=== PATIENT | male | born 1965 | race African-American/Black ===

== ENCOUNTER → 2016-07-22 | Outpatient (CLI) | payer BC ==
[~2016-07-22] VITALS: Ht 175.3 cm; Wt 80.8 kg
[~2016-07-22] MED LIST: AMBIEN 10 MG TA10 MG PO; ASPIR 8181 MG PO; LISINOPRIL10 MG PO; LOPRESSOR25 PO; LYRICA 75 MG CA75 MG PO; METHADONE HCL5 MG PO; MYFORTIC360 MG PO; PERCOCET 5-3251 EACH PO; PERCOCET 7.5-31 EAC1 PO; PERCOCET 7.5-31 EACH PO; PREDNISONE 5 MG5 M1 PO; PROGRAF0.5 MG PO; PROGRAF1 MG PO; TRILEPTAL 300300 MG PO; TRILEPTAL150 MG PO; UNICOMPLEX M TA1 TA1 PO; ZANTAC 150MG T150 MG PO
--- NOTE | ~2016-07-22 | HPC ---
[facility] [place] [address] PAIN MANAGEMENT CONSULTATION Name: FRANCISCO JENNINGS Room #: REG [facility] Carrie.#: [id number] Admission: 07/22/16 Attend Phys: Isidro Dominguez DO Discharge: Date of : 65 Report #: [id number] THIS REPORT FOR: //name// CC: Ekaterina Dominguez HISTORY OF PRESENT ILLNESS: The patient is a pleasant 51-year-old gentleman, well known to the pain clinic, being treated for bilateral neuropathic pain affecting his feet, the patient is status post pancreatic and renal transplant, he has diabetic peripheral neuropathy. Since the transplant, actually his renal function and glucose control has been quite good. He has been stable on Trileptal 300 mg b.i.d. and Percocet 7.5/325 four a day for chronic pain now for quite some time, last urine drug screen 01/22/2016, was positive for prescribed medications. He returns to pain clinic today noting medications are providing sufficient analgesia to participate in activities of daily living. Subjective pain score is 5/10, again chronic bilateral feet pain, burning, sharp, and aching in character. 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 PHYSICAL EXAMINATION: Unchanged from last visit, a 51-year-old male, BMI is 26.3 kg/m2. Vital signs show modest hypertension at 159/94, pulse 86, and respirations 16. Alert and oriented to person, place and time, judged to be a reasonable historian. Gait is tandem, but diffuse hyperalgesia on both feet, hyperpathia and allodynia. We reviewed the fact that opiate medications are being used to provide analgesia adequate to support activities of daily living, not attempting to achieve a specific pain score on the 0-10 Visual Analog Scale. The current opiate medications are providing sufficient analgesia to allow the patient to participate in activities of daily living. The patient is not exhibiting any aberrant behavior suggestive of drug diversion. The patient is not having any adverse reactions to medications. The patient is not suffering from daytime somnolence or mental acuity changes. The patient is managing opiate-induced constipation with appropriate btgy-czc-cgdfvvi agents and dietary considerations. The patient was counseled on concern for caution with operating a motor vehicle while using opiate medications. A physical exam was performed and the patient's functional status was evaluated. All patients with back pain were advised against the bed rest greater than 4 days and were advised to return to normal activities. Pain score assessment was noted and the treatment plan was reviewed with the patient. All current medications, both prescribed and OTC were reviewed and reconciled on the electronic medical record. Tobacco screening was accomplished and smoking cessation was advised when indicated. BMI was noted and diet/exercise modification was recommended for all patients following outside normal [facility] [address] [place] [address] PAIN MANAGEMENT CONSULTATION Name: FRANCISCO JENNINGS Room #: REG [place] Cabral#: [id number] Admission: 07/22/16 Attend Phys: Isidro Dominguez DO Discharge: Date of : 65 Report #: [id number] parameters. I reviewed with the patient today their responsibilities to safeguard prescription medications, reviewed their responsibility to utilize medications only as prescribed by the physician. They are to seek and receive pain medications only from 1 physician group ( [facility]). They are to use 1 pharmacy and keep the clinic informed if they change pharmacies. Their responsibilities include making followup visits in a timely fashion and to avoid abrupt discontinuation of medication usage. Their responsibilities further include bringing their medications (bottles from the pharmacy with residual pills) to the visit for possible confirmation of pill counts and the patient understands it is their responsibility to submit to random drug screens to ensure both that the medications prescribed are present, and that no other controlled substances are present. All prescriptions provided today were generated electronically. 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 RECOMMENDATION: Continue baseline medication unchanged, Trileptal 300 mg b.i.d., Percocet 7.5/325 up to 4 a day. I have taken the liberty of writing for 2 months of current medications. Follow up at that time, earlier if needed. <ELECTRONICALLY SIGNED> By: Isidro Dominguez DO 07/25/16 1538 1622 Isidro Dominguez DO /nt
[2016-07-22 14:00] VITALS: BP 159/94
== END ==
LOC: PAIN 06:47
DX: E11.42 Type 2 diabetes mellitus with diabetic polyneuropathy (principal); Z94.0 Kidney transplant status; Z94.83 Pancreas transplant status; I10 Essential (primary) hypertension

== ENCOUNTER → 2016-09-09 | Outpatient (CLI) | payer BC ==
[~2016-09-09] VITALS: Ht 175.3 cm; Wt 78.0 kg
--- NOTE | ~2016-09-09 | HPC ---
[facility] [address] [address] PAIN MANAGEMENT CONSULTATION Name: FRANCISCO JENNINGS Room #: REG [facility] Carrie.#: [id number] Admission: 09/09/16 Attend Phys: Isidro Dominguez DO Discharge: Date of : 65 Report #: [id number] THIS REPORT FOR: //name// CC: Ekaterina Dominguez HISTORY OF PRESENT ILLNESS: The patient is a very pleasant 51-year-old gentleman well known to the pain clinic, being treated for bipedal neuropathy, neuropathic pain requiring complex medication management. He is status post pancreatic renal transplant about 11 years ago. Has a combination of diabetic peripheral neuropathy, plantar fasciitis and osteoarthritis in the ankles, requiring complex medication management. The patient has been stable on Percocet 7.5/325 up to 4 a day and Trileptal 300 mg b.i.d. He has a very realistic expectation on medications "blunt", the burning, sharp, aching pain in his feet, which he notes does have 4/10 on a 0-10 visual analog scale. Last urine drug screen 01/22/2016 was positive for prescribed medication. We reviewed the fact that opiate medications are being used to provide analgesia adequate to support activities of daily living, not attempting to achieve a specific pain score on the 0-10 Visual Analog Scale. The current opiate medications are providing sufficient analgesia to allow the patient to participate in activities of daily living. The patient is not exhibiting any aberrant behavior suggestive of drug diversion. The patient is not having any adverse reactions to medications. The patient is not suffering from daytime somnolence or mental acuity changes. The patient is managing opiate-induced constipation with appropriate trnv-nxn-wpmvfrk agents and dietary considerations. The patient was counseled on concern for caution with operating a motor vehicle while using opiate medications. A physical exam was performed and the patient's functional status was evaluated. All patients with back pain were advised against the bed rest greater than 4 days and were advised to return to normal activities. Pain score assessment was noted and the treatment plan was reviewed with the patient. All current medications, both prescribed and OTC were reviewed and reconciled on the electronic medical record. Tobacco screening was accomplished and smoking cessation was advised when indicated. BMI was noted and diet/exercise modification was recommended for all patients following outside normal parameters. I reviewed with the patient today their responsibilities to safeguard prescription medications, reviewed their responsibility to utilize medications only as prescribed by the physician. They are to seek and receive pain medications only from 1 physician group ( [facility]). They are to use 1 pharmacy and keep the clinic informed if they change pharmacies. Their [address] [address] PAIN MANAGEMENT CONSULTATION Name: FRANCISCO JENNINGS Room #: REG [place] Cabral#: [id number] Admission: 09/09/16 Attend Phys: Isidro Dominguez DO Discharge: Date of : 65 Report #: [id number] responsibilities include making followup visits in a timely fashion and to avoid abrupt discontinuation of medication usage. Their responsibilities further include bringing their medications (bottles from the pharmacy with residual pills) to the visit for possible confirmation of pill counts and the patient understands it is their responsibility to submit to random drug screens to ensure both that the medications prescribed are present, and that no other controlled substances are present. All prescriptions provided today were generated electronically. PHYSICAL EXAMINATION: GENERAL: Unchanged from last visit, 51-year-old gentleman, BMI is 25.4 kilograms per meter squared. VITAL SIGNS: Stable. NEUROLOGIC: Alert and oriented to person, place and time, judged to be a reasonable historian. Subjective pain in his feet with nominally antalgic gait. ASSESSMENT: Bipedal neuropathy, neuropathic pain requiring complex medication management in a gentleman status post pancreatic and renal transplant with diabetic peripheral neuropathy, plantar fasciitis and osteoarthritis affecting his ankles. RECOMMENDATIONS: Continue current medication unchanged, Percocet 7.5/325 four a day, Trileptal 300 mg b.i.d. Follow up in 2 months for reevaluation. <ELECTRONICALLY SIGNED> By: Isidro Dominguez DO 09/12/16 0657 [id number] 1303 Isidro Dominguez DO /nt
[2016-09-09 10:19] VITALS: BP 131/81
== END | disposition home or self-care (01) ==
LOC: PAIN 06:49
DX: G62.9 Polyneuropathy, unspecified (principal); E11.42 Type 2 diabetes mellitus with diabetic polyneuropathy; M72.2 Plantar fascial fibromatosis; M19.072 Primary osteoarthritis, left ankle and foot; M19.071 Primary osteoarthritis, right ankle and foot; F11.20 Opioid dependence, uncomplicated; G89.29 Other chronic pain; Z79.82 Long term (current) use of aspirin; Z94.83 Pancreas transplant status; Z79.4 Long term (current) use of insulin; Z94.0 Kidney transplant status; Z98.890 Other specified postprocedural states

== ENCOUNTER → 2016-11-14 | Outpatient (CLI) | payer BC ==
[~2016-11-14] VITALS: Ht 175.3 cm; Wt 81.1 kg
--- NOTE | ~2016-11-14 | HPC ---
[facility] [address] [place] [address] PAIN MANAGEMENT CONSULTATION Name: FRANCISCO JENNINGS Room #: REG [place]na#: [id number] Admission: 11/14/16 Attend Phys: Isidro Dominguez DO Discharge: Date of : 65 Report #: [id number] THIS REPORT FOR: //name// CC: Ekaterina Dominguez The patient is a delightful 51-year-old gentleman suffers bipedal neuropathy, some plantar fasciitis, chronic pain requiring complex medication management. He is status post pancreatic renal transplant, now 11 years ago. He has been stable on Percocet 7.5/325 four a day and Trileptal 300 mg b.i.d. for his bilateral neuropathic pain. 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 Spends a great deal of time on his feet. He notes medications provide sufficient analgesia to blunt his pain. He has realistic expectation about pain control. Last urine drug screen 01/22/2016 was positive for prescribed medications. We will likely check again next visit, no aberrant behavior suggestive for drug diversion, simply complying with opiate consent to treat contract. Today, he notes his pain is 4 on a VAS, chronic bilateral foot pain, he describes as burning, aching and sharp. Reviewed medications, list was reconciled. He does take lisinopril for hypertension. Looking back at his chart, it appears his blood pressure had been under much better control in the past. I suggest he follow up with his training generalist physician. PHYSICAL EXAMINATION: VITAL SIGNS: Unchanged, 51-year-old gentleman, BMI is 26.4 kilograms per meter squared. Blood pressure is elevated at 164/98, pulse 94, respirations 20. EXTREMITIES: Rises from chair using armrest. Gait is tandem. NEUROLOGIC: Alert and oriented to person, place and time, judged to be a reasonable historian. K-TRACS reveals no findings, he gets his prescriptions filled . ASSESSMENT: Neuropathic pain requiring complex medication management. The patient is stable on baseline medications. We reviewed the fact that opiate medications are being used to provide analgesia adequate to support activities of daily living, not attempting to achieve a specific pain score on the 0-10 Visual Analog Scale. The current opiate medications are providing sufficient analgesia to allow the patient to participate in activities of daily living. The patient is not exhibiting any aberrant behavior suggestive of drug diversion. The patient is not having any adverse reactions to medications. The patient is not suffering from daytime somnolence or mental acuity changes. The patient is managing opiate-induced constipation with appropriate rvao-ufx-wfvkxyh [place] [address] PAIN MANAGEMENT CONSULTATION Name: FRANCISCO JENNINGS Room #: REG [facility] Marianna#: [id number] Admission: 11/14/16 Attend Phys: Isidro Dominguez DO Discharge: Date of : 65 Report #: [id number] considerations. The patient was counseled on concern for caution with operating a motor vehicle while using opiate medications. A physical exam was performed and the patient's functional status was evaluated. All patients with back pain were advised against the bed rest greater than 4 days and were advised to return to normal activities. Pain score assessment was noted and the treatment plan was reviewed with the patient. All current medications, both prescribed and OTC were reviewed and reconciled on the electronic medical record. Tobacco screening was accomplished and smoking cessation was advised when indicated. BMI was noted and diet/exercise modification was recommended for all patients following outside normal parameters. I reviewed with the patient today their responsibilities to safeguard prescription medications, reviewed their responsibility to utilize medications only as prescribed by the physician. They are to seek and receive pain medications only from 1 physician group ( [facility]). They are to use 1 pharmacy and keep the clinic informed if they change pharmacies. Their responsibilities include making followup visits in a timely fashion and to avoid abrupt discontinuation of medication usage. Their responsibilities further include bringing their medications (bottles from the pharmacy with residual pills) to the visit for possible confirmation of pill counts and the patient understands it is their responsibility to submit to random drug screens to ensure both that the medications prescribed are present, and that no other controlled substances are present. All prescriptions provided today were generated electronically. RECOMMENDATION: Continue medication unchanged, Percocet 7.5/325 four a day, Trileptal 300 mg b.i.d. Follow up in 2 months for reevaluation. By: [id number] Isidro Dominguez DO /nt
[2016-11-14 14:13] VITALS: BP 164/98
== END ==
LOC: PAIN 07:25
DX: M79.2 Neuralgia and neuritis, unspecified (principal)

== ENCOUNTER → 2017-01-02 | Outpatient (CLI) | payer BC ==
[~2017-01-02] VITALS: Ht 175.3 cm; Wt 82.6 kg
[~2017-01-02] MED LIST changes: +NUCYNTA75 MG PO
--- NOTE | ~2017-01-02 | HPC ---
[facility] [address] [address] PAIN MANAGEMENT CONSULTATION Name: FRANCISCO JENNINGS Room #: REG [facility] Carrie.#: [id number] Admission: 01/02/17 Attend Phys: Isidro Dominguez DO Discharge: Date of : 65 Report #: [id number] THIS REPORT FOR: //name// CC: Ekaterina Dominguez The patient is a very pleasant 51-year-old gentleman, long treated for neuropathic pain bipedal, history of plantar fasciitis, status post pancreatic renal transplant, stable on neuropathic medication including Trileptal 300 mg b.i.d. and Percocet 7.5/325 up to 4 a day. The patient has been having some dwindling efficacy with Percocet. 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 PHYSICAL EXAMINATION: Shows a pleasant 51-year-old gentleman, BMI is 26.9 kg/m2. Blood pressure is modestly elevated 143/94, pulse is 101, and respirations 16. Subjective pain score is a 7-8 on VAS, burning and aching sensation, bilateral feet. Otherwise, physical exam is unchanged from last visit. We reviewed the fact that opiate medications are being used to provide analgesia adequate to support activities of daily living, not attempting to achieve a specific pain score on the 0-10 Visual Analog Scale. The current opiate medications are providing sufficient analgesia to allow the patient to participate in activities of daily living. The patient is not exhibiting any aberrant behavior suggestive of drug diversion. The patient is not having any adverse reactions to medications. The patient is not suffering from daytime somnolence or mental acuity changes. The patient is managing opiate-induced constipation with appropriate wbln-kdk-haiqxtw agents and dietary considerations. The patient was counseled on concern for caution with operating a motor vehicle while using opiate medications. A physical exam was performed and the patient's functional status was evaluated. All patients with back pain were advised against the bed rest greater than 4 days and were advised to return to normal activities. Pain score assessment was noted and the treatment plan was reviewed with the patient. All current medications, both prescribed and OTC were reviewed and reconciled on the electronic medical record. Tobacco screening was accomplished and smoking cessation was advised when indicated. BMI was noted and diet/exercise modification was recommended for all patients following outside normal parameters. I reviewed with the patient today their responsibilities to safeguard prescription medications, reviewed their responsibility to utilize medications only as prescribed by the physician. They are to seek and receive pain medications only from 1 physician group ( [facility]). They are to use 1 pharmacy and keep the clinic informed if they change pharmacies. Their [address] [address] PAIN MANAGEMENT CONSULTATION Name: FRANCISCO JENNINGS Room #: REG [place] Cabral#: [id number] Admission: 01/02/17 Attend Phys: Isidro Dominguez DO Discharge: Date of : 65 Report #: [id number] responsibilities include making followup visits in a timely fashion and to avoid abrupt discontinuation of medication usage. Their responsibilities further include bringing their medications (bottles from the pharmacy with residual pills) to the visit for possible confirmation of pill counts and the patient understands it is their responsibility to submit to random drug screens to ensure both that the medications prescribed are present, and that no other controlled substances are present. All prescriptions provided today were generated electronically. RECOMMENDATION: Discussion with the patient today about therapeutic option. We talked about opiate rotation today. Again, he has been having a little lack of efficacy. 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 Today, we have elected to trial rotating from Percocet 7.5/325 to Nucynta 75 mg, switching with directions similarly 4 times a day for breakthrough pain. We will continue Trileptal 300 mg b.i.d. I am hopeful this rotation will work, I wrote for 2 months of current medication, did suggest that in about 3 weeks if the rotation is not efficacious for him to return to the pain clinic, we will either consider another rotation or go back to Percocet. Discharged in good and stable condition after moderately prolonged visit spent counseling the patient, reviewing therapeutic options, discussing medication changes. Overall, approximately 25 minutes was spent with the patient, discharged in good and stable condition. <ELECTRONICALLY SIGNED> By: Isidro Dominguez DO 01/04/17 0752 [id number] 1420 Isidro Dominguez DO /nt
[2017-01-02 09:19] VITALS: BP 143/94
== END | disposition home or self-care (01) ==
LOC: PAIN 07:09
DX: G62.9 Polyneuropathy, unspecified (principal); M72.2 Plantar fascial fibromatosis; Z94.83 Pancreas transplant status; Z94.0 Kidney transplant status

== ENCOUNTER → 2017-03-03 | Outpatient (CLI) | payer BC ==
[~2017-03-03] VITALS: Ht 175.3 cm; Wt 84.0 kg
[~2017-03-03] MED LIST changes: +OXYCODONE HCL E10 MG PO
--- NOTE | ~2017-03-03 | HPC ---
[facility] [place] [address] PAIN MANAGEMENT CONSULTATION Name: FRANCISCO JENNINGS Room #: REG [place] Carrie.#: [id number] Admission: 03/03/17 Attend Phys: Isidro Dominguez DO Discharge: Date of : 65 Report #: [id number] THIS REPORT FOR: //name// CC: Ekaterina Dominguez HISTORY OF PRESENT ILLNESS: The patient is a delightful 51-year-old gentleman long treated for chronic neuropathic pain, bipedal. He has history of plantar fasciitis. Comorbidity includes being status post pancreas and renal transplant. He has diabetes with diabetic peripheral neuropathy. 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 At last visit, we had tried rotating from Percocet 7.5/325 due to dwindling efficacy to Nucynta 75 mg. This unfortunately caused exacerbation of pain and some nausea. We reverted back to Percocet 5/325. Continued Trileptal 300 mg b.i.d. He returns to pain clinic today noting pain remains problematic. He rates it at 7 on a VAS, right greater than left foot; burning, aching sensation; exacerbated with standing and walking. PHYSICAL EXAMINATION: Unchanged. Pleasant 51-year-old gentleman, BMI is 27.3 kilograms per meter squared. Blood pressure modestly elevated at 149/78, pulse 112, respiration 16. Rises from chair using armrest, antalgic gait, burning dysesthesia in his feet and lower legs. We reviewed the fact that opiate medications are being used to provide analgesia adequate to support activities of daily living, not attempting to achieve a specific pain score on the 0-10 Visual Analog Scale. The current opiate medications are providing sufficient analgesia to allow the patient to participate in activities of daily living. The patient is not exhibiting any aberrant behavior suggestive of drug diversion. The patient is not having any adverse reactions to medications. The patient is not suffering from daytime somnolence or mental acuity changes. The patient is managing opiate-induced constipation with appropriate zkak-zjx-ilsfvzp agents and dietary considerations. The patient was counseled on concern for caution with operating a motor vehicle while using opiate medications. A physical exam was performed and the patient's functional status was evaluated. All patients with back pain were advised against the bed rest greater than 4 days and were advised to return to normal activities. Pain score assessment was noted and the treatment plan was reviewed with the patient. All current medications, both prescribed and OTC were reviewed and reconciled on the electronic medical record. Tobacco screening was accomplished and smoking cessation was advised when indicated. BMI was noted and diet/[place] [address] PAIN MANAGEMENT CONSULTATION Name: FRANCISCO JENNINGS Room #: REG [place] Cabral#: [id number] Admission: 03/03/17 Attend Phys: Isidro Dominguez DO Discharge: Date of : 65 Report #: [id number] modification was recommended for all patients following outside normal parameters. I reviewed with the patient today their responsibilities to safeguard prescription medications, reviewed their responsibility to utilize medications only as prescribed by the physician. They are to seek and receive pain medications only from 1 physician group ( [facility]). They are to use 1 pharmacy and keep the clinic informed if they change pharmacies. Their responsibilities include making followup visits in a timely fashion and to avoid abrupt discontinuation of medication usage. Their responsibilities further include bringing their medications (bottles from the pharmacy with residual pills) to the visit for possible confirmation of pill counts and the patient understands it is their responsibility to submit to random drug screens to ensure both that the medications prescribed are present, and that no other controlled substances are present. All prescriptions provided today were generated electronically. Long discussion with the patient today. In fact, he was seen for a prolonged visit, from 9:22-9:50, greater than 50% of time spent counseling the patient. We elected to: 1. Get a buccal drug swab. It should be positive for oxycodone as the sole opiate. No aberrant behavior suggestive for drug diversion, simply complying with her opiate consent to treat contract. 2. We will continue Percocet 7.5/325 up to 4 a day, but add low dose methadone 2.5 mg q. 8 hours p.r.n. for pain. I have taken the liberty of writing for 2 months of current medication. If after about 3 weeks, his methadone experiment is not efficacious and does not lower his overall baseline pain, I have taken the liberty of writing for oxycodone extended release 10 mg tablet, 60 tablets, to take one b.i.d. We will leave that prescription on the chart. He can bring back the "4-week release of methadone and trial the long acting oxycodone along with Percocet 7.5/325 four a day. The patient was discharged in good and stable condition. Follow up in 4 weeks for evaluation. Again he was seen for a prolonged visit, from 9:22-9:50. Discharged in stable condition. <ELECTRONICALLY SIGNED> By: Isidro Dominguez DO 03/06/17 0759 [id number] Isidro Dominguez, DO /nt
[2017-03-03 09:20] VITALS: BP 149/78
== END ==
LOC: PAIN 06:41
DX: E11.40 Type 2 diabetes mellitus with diabetic neuropathy, unspecified (principal); M72.2 Plantar fascial fibromatosis; Z94.83 Pancreas transplant status; Z94.0 Kidney transplant status

== ENCOUNTER → 2017-04-24 | Outpatient (CLI) | payer BC ==
[~2017-04-24] VITALS: Ht 175.3 cm; Wt 82.4 kg
[~2017-04-24] MED LIST changes: +PERCOCET 10-321 EACH PO; +TRILEPTAL300 MG PO
--- NOTE | ~2017-04-24 | HPC ---
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 He is status post pancreas and renal transplant. He has been stable on Trileptal 300 mg b.i.d. He had been utilizing Percocet 7.5/325 four a day for many years, was having dwindling efficacy. Last visit, we trialed adding a low dose methadone 2.5 mg t.i.d. This caused significant GI distress. His trial of adding OxyContin 10 mg b.i.d. with really no discernible change in pain. Buccal swab at last visit was positive for prescribed medications. He returns to pain clinic today noting pain continues to be problematic. 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 He remains quite functional and active despite ongoing chronic pain. PHYSICAL EXAMINATION: GENERAL: Today is generally unchanged, 52-year-old gentleman, BMI is approximately 26 kilograms per meter squared. NEUROLOGIC: Alert and oriented to person, place and time, judged to be a reasonable historian. MUSCULOSKELETAL: Cervical range of motion is good. Rises from chair using armrest. Modestly antalgic gait, tandem with peripheral neuropathic pain from about the knees down bilaterally. We reviewed the fact that opiate medications are being used to provide analgesia adequate to support activities of daily living, not attempting to achieve a specific pain score on the 0-10 Visual Analog Scale. The current opiate medications are providing sufficient analgesia to allow the patient to participate in activities of daily living. The patient is not exhibiting any aberrant behavior suggestive of drug diversion. The patient is not having any adverse reactions to medications. The patient is not suffering from daytime somnolence or mental acuity changes. The patient is managing opiate-induced constipation with appropriate ybvd-mhl-txolexu agents and dietary considerations. The patient was counseled on concern for caution with operating a motor vehicle while using opiate medications. A physical exam was performed and the patient's functional status was evaluated. [address] [address] PAIN MANAGEMENT CONSULTATION Name: FRANCISCO JENNINGS Room #: REG CLI Dori#: [id number] Admission: 04/24/17 Attend Phys: Isidro Dominguez DO Discharge: Date of : 65 Report #: [id number] All patients with back pain were advised against the bed rest greater than 4 days and were advised to return to normal activities. Pain score assessment was noted and the treatment plan was reviewed with the patient. All current medications, both prescribed and OTC were reviewed and reconciled on the electronic medical record. Tobacco screening was accomplished and smoking cessation was advised when indicated. BMI was noted and diet/exercise modification was recommended for all patients following outside normal parameters. I reviewed with the patient today their responsibilities to safeguard prescription medications, reviewed their responsibility to utilize medications only as prescribed by the physician. They are to seek and receive pain medications only from 1 physician group ( [facility]). They are to use 1 pharmacy and keep the clinic informed if they change pharmacies. Their responsibilities include making followup visits in a timely fashion and to avoid abrupt discontinuation of medication usage. Their responsibilities further include bringing their medications (bottles from the pharmacy with residual pills) to the visit for possible confirmation of pill counts and the patient understands it is their responsibility to submit to random drug screens to ensure both that the medications prescribed are present, and that no other controlled substances are present. All prescriptions provided today were generated electronically. ASSESSMENT: Chronic neuropathic pain, bilateral lower extremities, requiring high risk complex medication management in a gentleman status post pancreatic and renal transplant. RECOMMENDATIONS: After a long discussion with the patient today, we have elected to discontinue OxyContin. Obviously, we have already discontinued methadone. Continue Trileptal 300 mg b.i.d., he does not require prescription for this medication today. I have elected to simply increase Percocet from 7.5/325 to 10/325. Continue enabling up to 4 tablets a day, 120 tablets for 30 days, I did take the liberty of writing for 2 months of current medication. Suggested on weekends and days when he is not working 40+ hours, he try and take less, i.e., 3 Percocet as able. Discharged in good and stable condition today. Follow up in 2 months for reevaluation. <ELECTRONICALLY SIGNED> By: Isidro Dominguez DO 04/26/17 0807 [id number] Isidro Dominguez DO /nt
[2017-04-24 11:12] VITALS: BP 161/84
== END ==
LOC: PAIN 06:47
DX: M79.2 Neuralgia and neuritis, unspecified (principal); M79.605 Pain in left leg; M79.604 Pain in right leg; Z79.899 Other long term (current) drug therapy; Z94.83 Pancreas transplant status; Z94.0 Kidney transplant status

== ENCOUNTER → 2017-06-15 | Outpatient (CLI) | payer BC ==
[~2017-06-15] VITALS: Ht 175.3 cm; Wt 83.3 kg
--- NOTE | ~2017-06-15 | HPC ---
[facility] [address] [address] [place] [address] PAIN MANAGEMENT CONSULTATION Name: FRANCISCO JENNINGS Room #: REG GRETCHENGarry Butler.#: [id number] Admission: 06/15/17 Attend Phys: Isidro Dominguez DO Discharge: Date of : 65 Report #: [id number] THIS REPORT FOR: //name// CC: Ekaterina Dominguez HISTORY OF PRESENT ILLNESS: The patient is a very pleasant 52-year-old gentleman long treated for bipedal neuropathy. He has a longstanding diabetes, status post pancreas and renal transplant. His blood sugars have been better following the transplant. He has had bipedal neuropathy that has been stable with Percocet 10/325 up to 4 a day, this is slightly increase from 7.5/325 prior dosing. I trialed rotating to OxyContin with a low-dose Percocet and we tried rotating the methadone, all with no significant efficacy. He does use Trileptal 300 mg b.i.d. He returns to pain clinic today, we had a prolonged visit from 10:00 a.m. to 10:30, greater than 50% of this 25+ minute visit was spent counseling the patient. We reviewed his prior buccal drug swab, random drug testing 03/03/2017 which was positive for prescribed medications and no others. The patient notes that while medications have been helpful for his chronic neuropathic pain, he developed specific point tenderness in the right lateral aspect of his foot. We reviewed the fact that opiate medications are being used to provide analgesia adequate to support activities of daily living, not attempting to achieve a specific pain score on the 0-10 Visual Analog Scale. The current opiate medications are providing sufficient analgesia to allow the patient to participate in activities of daily living. The patient is not exhibiting any aberrant behavior suggestive of drug diversion. The patient is not having any adverse reactions to medications. The patient is not suffering from daytime somnolence or mental acuity changes. The patient is managing opiate-induced constipation with appropriate jldv-chf-aswiqwo agents and dietary considerations. The patient was counseled on concern for caution with operating a motor vehicle while using opiate medications. A physical exam was performed and the patient's functional status was evaluated. All patients with back pain were advised against the bed rest greater than 4 days and were advised to return to normal activities. Pain score assessment was noted and the treatment plan was reviewed with the patient. All current medications, both prescribed and OTC were reviewed and reconciled on the electronic medical record. Tobacco screening was accomplished and smoking cessation was advised when indicated. BMI was noted and diet/exercise modification was recommended for all patients following outside normal [address] [address] PAIN MANAGEMENT CONSULTATION Name: FRANCISCO JENNINGS Room #: REG [place] Cabral#: [id number] Admission: 06/15/17 Attend Phys: Isidro Dominguez DO Discharge: Date of : 65 Report #: [id number] parameters. I reviewed with the patient today their responsibilities to safeguard prescription medications, reviewed their responsibility to utilize medications only as prescribed by the physician. They are to seek and receive pain medications only from 1 physician group ([facility]). They are to use 1 pharmacy and keep the clinic informed if they change pharmacies. Their responsibilities include making followup visits in a timely fashion and to avoid abrupt discontinuation of medication usage. Their responsibilities further include bringing their medications (bottles from the pharmacy with residual pills) to the visit for possible confirmation of pill counts and the patient understands it is their responsibility to submit to random drug screens to ensure both that the medications prescribed are present, and that no other controlled substances are present. All prescriptions provided today were generated electronically. PHYSICAL EXAMINATION: Does show hypertrophic area here that is quite tender. Difficult to tell if this is a "corn" or perhaps a small infectious site secondary to a prior unnoticed trauma (splinter?). Physical exam otherwise unchanged, a 52-year-old gentleman, BMI is 27.1 kilograms per meter squared. Blood pressure is 161/84, pulse 103, respirations 16. Subjective pain score 8 on a VAS which is elevated for the patient. He has not fallen in the last 3 months. He is hypertensive. Medication list was reconciled. His opiate consent to treat contract was signed on 12/04/2015. His risk assessment tool scores in the low risk for opiate diversion. Again, changes in the right lateral mid foot are quite concerning. I did contact Dr. Jacinta Menezes, roofing tile sorter, his office is immediately above our clinic. Dr. Menezes was kind enough to make an appointment to see the patient this morning. He was discharged from our clinic in good and stable condition. I did renew his Percocet 10/325 up to 4 a day and Trileptal 300 mg b.i.d. for another 3 months. Follow up at that time, earlier if needed. <ELECTRONICALLY SIGNED> By: Isidro Dominguez DO 06/21/17 0744 [id number] Isidro Dominguez DO /nt
[2017-06-15 10:00] VITALS: BP 144/88
== END ==
LOC: PAIN 06:58
DX: G62.9 Polyneuropathy, unspecified (principal); F11.90 Opioid use, unspecified, uncomplicated; M79.672 Pain in left foot

== ENCOUNTER → 2017-08-14 | Outpatient (CLI) | payer BC ==
[~2017-08-14] VITALS: Ht 175.3 cm; Wt 85.7 kg
[~2017-08-14] MED LIST changes: -TRILEPTAL300 MG PO
--- NOTE | ~2017-08-14 | HPC ---
[facility] [place] [address] [place] [address] PAIN MANAGEMENT CONSULTATION Name: FRANCISCO JENNINGS Room #: REG GRETCHENGarry Cabral#: [id number] Admission: 08/14/17 Attend Phys: Isidro Dominguez DO Discharge: Date of : 65 Report #: [id number] THIS REPORT FOR: //name// CC: Ekaterina Dominguez DATE OF SERVICE: 08/14/2017 The patient is a delightful 52-year-old gentleman long treated for symptomatic neuropathic pain affecting bilateral feet. He has diabetic peripheral neuropathy, had pancreas and kidney transplant quite some time ago. Blood sugars have been stable. He does have peripheral neuropathic pain, which has been well treated with oxycodone and Trileptal 300 mg b.i.d. We had trialed methadone and OxyContin with low dose oxycodone. Ultimately, he failed these other agents. He had been stable on Percocet 7.5/325 four a day for quite some time, I did increase his dose to 10/325 in April of this year. Last random drug screen on 03/03/2017 was positive for prescribed medications. He returns to pain clinic today. Last visit, he was having some different point tenderness pain in his feet. I have referred him to Dr. Jacinta Menezes who was kind enough to see him in office that day. Apparently, he had some clogged sweat glands in his feet that were developing some acute nodules. These were shaved and treated with topical medication. Two office visits have significantly ameliorated the point tenderness in his feet. He is very pleased. He notes current pain score is 5 on a VAS. Notes he is able to participate in activities of daily living. 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 This requires a great deal of standing, walking on a concrete floor. He just got through Mother's Day. He notes that throughout the rest of the summer, they do a lot of weddings. Otherwise, he notes he is able to participate in all activities of daily living. Rates his functional assessment quite low at 17/70. He has not fallen in the last 3 months. PHYSICAL EXAMINATION: GENERAL: Otherwise unchanged. Very pleasant 5 feet 9 inches, 189 pound gentleman, BMI is 27.9 kilograms per meter squared. VITAL SIGNS: Blood pressure 127/82, pulse is 108, respirations 16, room air oxygen saturation 100%. He is doing well with current medications. Discussed with the patient that I will be leaving the practice. He has been quite dependable responsible and medications have afforded great utility for him. I pointed out that he is in the relative moderate risk at roughly 60 mg of morphine a day. Again, he had been stable at 7.5/325 Percocet 4 a day for quite some time that was equivalent to about 45 mg of morphine. Only recently we did [address] [address] PAIN MANAGEMENT CONSULTATION Name: FRANCISCO JENNINGS Room #: REG [facility] Carrie.#: [id number] Admission: 08/14/17 Attend Phys: Isidro Dominguez DO Discharge: Date of : 65 Report #: [id number] increase the dose. I told him we will probably leave at this dose for quite some time. If he starts to fail at this dose, we would look at rotating to a different agent and probably trying an opiate wean. Presently; however, I have taken the liberty of writing for 3 months of current medication including Percocet 10/325 four a day and Trileptal 300 mg b.i.d. I will have the patient follow up with Dr. Donald Prado or Dr. Gabe Dominguez in 3 months. We reviewed the fact that opiate medications are being used to provide analgesia adequate to support activities of daily living, not attempting to achieve a specific pain score on the 0-10 Visual Analog Scale. The current opiate medications are providing sufficient analgesia to allow the patient to participate in activities of daily living. The patient is not exhibiting any aberrant behavior suggestive of drug diversion. The patient is not having any adverse reactions to medications. The patient is not suffering from daytime somnolence or mental acuity changes. The patient is managing opiate-induced constipation with appropriate rcbz-ocg-vwqlgxn agents and dietary considerations. The patient was counseled on concern for caution with operating a motor vehicle while using opiate medications. A physical exam was performed and the patient's functional status was evaluated. All patients with back pain were advised against the bed rest greater than 4 days and were advised to return to normal activities. Pain score assessment was noted and the treatment plan was reviewed with the patient. All current medications, both prescribed and OTC were reviewed and reconciled on the electronic medical record. Tobacco screening was accomplished and smoking cessation was advised when indicated. BMI was noted and diet/exercise modification was recommended for all patients following outside normal parameters. I reviewed with the patient today their responsibilities to safeguard prescription medications, reviewed their responsibility to utilize medications only as prescribed by the physician. They are to seek and receive pain medications only from 1 physician group ( [facility]). They are to use 1 pharmacy and keep the clinic informed if they change pharmacies. Their responsibilities include making followup visits in a timely fashion and to avoid abrupt discontinuation of medication usage. Their responsibilities further include bringing their medications (bottles from the pharmacy with residual pills) to the visit for possible confirmation of pill counts and the patient understands it is their responsibility to submit to random drug screens to ensure both that the medications prescribed are present, and that no other [facility] [address] [place] [address] PAIN MANAGEMENT CONSULTATION Name: DICKFRANCISCOToni GONSALEZ Room #: REG CL Carrie.#: [id number] Admission: 08/14/17 Attend Phys: Isidro Dominguez DO Discharge: Date of : 65 Report #: [id number] controlled substances are present. All prescriptions provided today were generated electronically. By: [id number] Isidro Dominguez DO /nt
[2017-08-14 14:20] VITALS: BP 127/82
== END ==
LOC: PAIN 07:27
DX: E11.42 Type 2 diabetes mellitus with diabetic polyneuropathy (principal); M79.2 Neuralgia and neuritis, unspecified

== ENCOUNTER → 2018-01-31 | Outpatient (CLI) | payer BC ==
[~2018-01-31] VITALS: Ht 175.3 cm; Wt 87.5 kg
[~2018-01-31] MED LIST changes: +TRILEPTAL300 MG PO
--- NOTE | ~2018-01-31 | HPC ---
[facility] [place] [address] PAIN MANAGEMENT CONSULTATION Name: FRANCISCO JENNINGS Room #: REG [place] Carrie.#: [id number] Admission: 01/31/18 Attend Phys: Isabela Ferguson Discharge: Date of : 65 Report #: [id number] THIS REPORT FOR: //name// CC: Ekaterina Ferguson DATE OF SERVICE: 01/31/2018 CHIEF COMPLAINT: Bilateral foot pain. HISTORY OF PRESENT ILLNESS: A very pleasant gentleman 52-year-old age, here for history of bipedal neuropathy. He has a longstanding history of diabetes and he has had a pancreas and kidney transplant. He notices that his foot pain has helped with his Percocet and his Trileptal. He would like a refill of his current medications today. He states that he is doing well with his current regimen. He denies any constipation or daytime sleepiness. He tells me that his pain score is 7/10 today, worse with walking and the medications are very helpful. The patient is slightly stressed today. His sister was taken to the hospital very emergently and anxious to get to her. He says that she has been sick lately. The patient is off work today for our visit today. ALLERGIES: No drug allergies. CURRENT MEDICATION LIST: Trileptal 300 mg twice a day, Percocet 10/325 up to 4 times a day, lisinopril, multivitamin, aspirin, Ambien, Zantac, prednisone, Myfortic and Prograf. PQRS: 1. The patient has bilateral history of osteoarthritis in his lower extremities. He denies rheumatoid arthritis. 2. Height 5 feet 9 inches, weight 193, BMI is 28.5. 3. Vital signs are blood pressure 140/87, pulse is 108, respirations 18, oxygen sat is 99. 4. Pain score is 7/10 today. 5. Fall risk. He denies dizziness. Does not need help walking or standing. 6. He has not fallen in the last 3 months. 7. The patient is on no blood thinners. 8. Does have a history of high blood pressure. 9. Opioid therapy greater than 6 weeks. Therefore, an opioid signed contract is on the chart. 10. Risk assessment tool is low and his functional assessment is . 11. The patient denies recreational drug use, does not smoke and does not drink alcohol. His [place] and [place] PDMP was checked. Appropriate fills only from our [facility] [address] [place] [address] PAIN MANAGEMENT CONSULTATION Name: FRANCISCO JENNINGS Room #: REG [facility] Marianna#: [id number] Admission: 01/31/18 Attend Phys: Isabela Ferguson Discharge: Date of : 65 Report #: [id number] Daniel Prado and in the past, Dr. Isidro Dominguez. The patient does have some other scheduled medications that are appropriate fills from his other doctors that we have record of. The patient has no aberrant behaviors and keeps them medicines locked up and only takes medicines that he needed to work and has a recent drug screen on the chart that is appropriate. PHYSICAL EXAMINATION GENERAL: The patient is a well-developed black male who appears his stated age. He is alert and oriented. Speech is fluent. HEENT: Normocephalic, atraumatic. Extraocular eye muscles are intact. Mucous membranes are moist. Hearing was within normal limits. LUNGS: Without significant scoliosis or lordosis. ABDOMEN: Nontender. EXTREMITIES: Upper extremities strength is judged to be 5/5 for his major muscle groups in his upper extremities. The patient notes some neuropathic changes in his lower extremities, especially his feet. Lower extremity strength is judged to be 5/5. The patient able to rise from sitting to standing without difficulty. IMPRESSION: 1. Diabetes with diabetic neuropathy, pancreatic and renal transplant. 2. Hypertension. 3. Neuropathic pain. We reviewed the fact that opiate medications are being used to provide analgesia adequate to support activities of daily living, not attempting to achieve a specific pain score on the 0-10 Visual Analog Scale. The current opiate medications are providing sufficient analgesia to allow the patient to participate in activities of daily living. The patient is not exhibiting any aberrant behavior suggestive of drug diversion. The patient is not having any adverse reactions to medications. The patient is not suffering from daytime somnolence or mental acuity changes. The patient is managing opiate-induced constipation with appropriate bkjo-mdy-[id number] agents and dietary considerations. The patient was counseled on concern for caution with operating a motor vehicle while using opiate medications. A physical exam was performed and the patient's functional status was evaluated. All patients with back pain were advised against the bed rest greater than 4 days and were advised to return to normal activities. Pain score assessment was noted and the treatment plan was reviewed with the patient. All current medications, both prescribed and OTC were reviewed and reconciled on the electronic medical record. Tobacco screening was accomplished and smoking cessation was advised when indicated. BMI was noted and diet/exercise modification was recommended for all patients following outside normal parameters. [address] [address] PAIN MANAGEMENT CONSULTATION Name: FRANCISCO JENNINGS Room #: REG [place] Cabral#: [id number] Admission: 01/31/18 Attend Phys: Isabela Ferguson Discharge: Date of : 65 Report #: [id number] I reviewed with the patient today their responsibilities to safeguard prescription medications, reviewed their responsibility to utilize medications only as prescribed by the physician. They are to seek and receive pain medications only from 1 physician group ( [facility]). They are to use 1 pharmacy and keep the clinic informed if they change pharmacies. Their responsibilities include making followup visits in a timely fashion and to avoid abrupt discontinuation of medication usage. Their responsibilities further include bringing their medications (bottles from the pharmacy with residual pills) to the visit for possible confirmation of pill counts and the patient understands it is their responsibility to submit to random drug screens to ensure both that the medications prescribed are present, and that no other controlled substances are present. All prescriptions provided today were generated electronically. PLAN: 1. We discussed treatment options with this patient and we will continue on his current dose of Trileptal 300 mg 1 tablet twice a day, #60 with 2 additional refills, script was given today as well as Percocet 10/325 one p.o. q.6h., #120, medications for today and 4 weeks. 2. I explained to the patient that the CDC guidelines would like people at 50 MMEs or below, but they do have a level of 90 MMEs or below. The patient falls in this 50-90 range, so therefore, it was determined that he will be seen at 2-month intervals per the clinic guidelines. The patient's current MME dose is 60. The patient is agreeable with this treatment plan. He will follow up with me in 2 months for medication refill. 3. The patient was seen in collaboration with Dr. Daniel Prado. <ELECTRONICALLY SIGNED> By: Isabela Ferguson 02/02/18 0715 [id number] Isabela Ferguson /nt
[2018-01-31 11:28] VITALS: BP 140/87
== END ==
LOC: PAIN 06:56
DX: E13.40 Other specified diabetes mellitus with diabetic neuropathy, unspecified (principal); I10 Essential (primary) hypertension; M79.2 Neuralgia and neuritis, unspecified; Z94.83 Pancreas transplant status; Z94.0 Kidney transplant status

== ENCOUNTER → 2018-03-30 | Outpatient (CLI) | payer BC ==
[~2018-03-30] VITALS: Ht 175.3 cm; Wt 88.5 kg
--- NOTE | ~2018-03-30 | HPC ---
[facility] [place] [address] [place] [address] PAIN MANAGEMENT CONSULTATION Name: FRANCISCO JENNINGS Room #: REG [place] Marianna#: [id number] Admission: 03/30/18 Attend Phys: Pradeep Prado MD Discharge: Date of : 65 Report #: [id number] THIS REPORT FOR: //name// CC: Ekaterina Prado DATE OF SERVICE: 03/30/2018 CHIEF COMPLAINT: 1. Here for medication renewal. 2. Continued right foot pain. 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 He does have diabetes. States that he continues to have pain, which is problematic. He has continued to work on his blood sugars for improvement. He has had a renal transplant and a pancreas transplant. He feels that his medications are beneficial. He has returned for those medications. Feels overall that the pain is 50% better with his current medical regimen. Taking his medications as prescribed. Also, has had some problems with plantar fasciitis. ALLERGIES: No known drug allergies. MEDICATIONS: Percocet 10/325 q. 4-6 hours p.r.n., Trileptal 300 mg b.i.d., lisinopril 100 mg, multivitamins, aspirin 81 mg chewable, Ambien 10 mg, Zantac 150 mg, prednisone 5 mg, Myfortic 360 mg 3 tablets daily, Prograf 6 tablets t.i.d. PAIN CLINIC ASSESSMENT/PQRS: 1. History of osteoarthritis involving by his feet, bilateral with neuropathic pain. 2. Height 5 feet 9 inches, weight 195 pounds, BMI is 28.8. 3. Vital signs: Blood pressure 146/90, pulse 108, respiratory rate 16, room air saturation 100%. 4. Pain intensity 8 today. Oftentimes revolves between 5-8. 5. Fall risk. The patient has not fallen. 6. Blood thinner. The patient is on a blood thinning medication. 7. Hypertension. The patient is being treated for hypertension. 8. Opioid therapy greater than 6 weeks. He receives his medication from one source, the [facility]. 9. Risk assessment tool, low for use of opioids. 10. Functional assessment tool, . 11. Recreational drug use: The patient denies. 12. Tobacco: The patient has never smoked. 13. Alcohol: The patient denies use of alcoholic beverages. [facility] [address] [place] [address] PAIN MANAGEMENT CONSULTATION Name: FRANCISCO JENNINGS Room #: REG CLI [facility]#: [id number] Admission: 03/30/18 Attend Phys: Pradeep Prado MD Discharge: Date of : 65 Report #: [id number] PHYSICAL EXAMINATION: GENERAL: The patient is a well-developed, well-nourished black male, appears stated age. He is alert and oriented x 3. Affect is appropriate. Speech is fluent. HEENT: Normocephalic, atraumatic. Extraocular eye muscles intact. Sclerae nonicteric. Mucous membranes moist. Hearing is within normal limits. NECK: Without adenopathy or JVD. HEART: Regular rate. S1, S2. LUNGS: Clear to auscultation without rhonchi or rales. MUSCULOSKELETAL: Without significant scoliosis, kyphosis or lordosis. ABDOMEN: Nontender. Bowel sounds present. EXTREMITIES: Upper extremity muscle strength judged to be 5/5 for the major muscle groups. Lower extremity muscle strength is judged to be 5/5. The patient has pain and discomfort in his feet with neuropathic changes in the lower extremities secondary to diabetes. IMPRESSION: 1. History of diabetes with diabetic neuropathy in the feet. 2. History of pancreatic transplant and normalization of glucose levels. 3. Hypertension. 4. Neuropathic pain. RECOMMENDATIONS: We discussed treatment options with the patient. We will continue with his current medical regimen. A script for his medications including Percocet have been written. The patient will call us if he has any concerns. Things are going reasonably well. A script for Trileptal 300 mg 1 p.o. b.i.d., Percocet 10/325 one p.o. q.i.d. have been written. We would like to thank you for letting us participate in his care. By: [id number] Pradeep Prado MD /martin
[2018-03-30 09:12] VITALS: BP 146/90
--- NOTE | 2018-03-30 09:18 | NUR ---
Pain Clinic Assessment: 1. History of Osteoarthritis: B/L FEET History of Rheumatoid Arthritis: Not Applicable 2. Height: 5 ft. 9 in. 175.3 cm. Weight: 195.0 lb. oz. 88.452 kg. Patient's BMI: 28.8 3. Vital Signs: BP: 146/90 Pulse: 108 Resp: 16 Temp: 02 Sat: 100 ECG Mon: 4. Pain Intensity: 8 5. Fall Risk: Dizziness: N Needs help standing or walking: N Fallen in the last 3 months: N Fall risk comments: 6. Patient on Blood Thinner: None 7. History of Hypertension: Y 8. Opioid Therapy greater than 6 weeks: Y Opiate Contract Signed: 12/04/15 9. Risk Assessment Tool Provided: LOW RISK 0 10. Functional Assessment Tool: 11. Recreational Drug Use: Never Drug Type: Tobacco Use: Never Smoker Tobacco Type: Amount or Packs/day: How Many Years: Alcohol Use: No Frequency: Quant:
== END ==
LOC: PAIN 07:58
DX: I10 Essential (primary) hypertension (principal); E11.40 Type 2 diabetes mellitus with diabetic neuropathy, unspecified; Z94.83 Pancreas transplant status

== ENCOUNTER → 2018-05-25 | Outpatient (CLI) | payer BC ==
[~2018-05-25] VITALS: Ht 175.3 cm; Wt 88.5 kg
[~2018-05-25] MED LIST changes: +ATIVAN0.5 MG PO
[2018-05-25 08:10] VITALS: BP 148/96
--- NOTE | 2018-05-25 08:20 | NUR ---
Pain Clinic Assessment: 1. History of Osteoarthritis: B/L FEET History of Rheumatoid Arthritis: Not Applicable 2. Height: 5 ft. 9 in. 175.3 cm. Weight: 195.2 lb. oz. 88.542 kg. Patient's BMI: 28.8 3. Vital Signs: BP: 148/96 Pulse: 98 Resp: 16 Temp: 02 Sat: 100 ECG Mon: 4. Pain Intensity: 6-7 5. Fall Risk: Dizziness: N Needs help standing or walking: N Fallen in the last 3 months: N Fall risk comments: 6. Patient on Blood Thinner: None 7. History of Hypertension: Y 8. Opioid Therapy greater than 6 weeks: Y Opiate Contract Signed: 12/04/15 9. Risk Assessment Tool Provided: LOW RISK 0 10. Functional Assessment Tool: 11. Recreational Drug Use: Never Drug Type: Tobacco Use: Never Smoker Tobacco Type: Amount or Packs/day: How Many Years: Alcohol Use: No Frequency: Quant:
== END ==
LOC: PAIN 06:51
DX: M79.672 Pain in left foot (principal); M79.671 Pain in right foot; G89.29 Other chronic pain; Z79.899 Other long term (current) drug therapy

== ENCOUNTER → 2018-07-20 | Outpatient (CLI) | payer BC ==
[~2018-07-20] VITALS: Ht 175.3 cm; Wt 89.0 kg
[~2018-07-20] MED LIST changes: +AMITRIPTYLINE H25 M2 PO
[2018-07-20 08:14] VITALS: BP 149/101
--- NOTE | 2018-07-20 08:22 | NUR ---
Pain Clinic Assessment: 1. History of Osteoarthritis: B/L FEET History of Rheumatoid Arthritis: Not Applicable 2. Height: 5 ft. 9 in. 175.3 cm. Weight: 196.2 lb. oz. 88.996 kg. Patient's BMI: 29.0 3. Vital Signs: BP: 149/101 Pulse: 103 Resp: 16 Temp: 02 Sat: 100 ECG Mon: 4. Pain Intensity: 8-9 5. Fall Risk: Dizziness: N Needs help standing or walking: N Fallen in the last 3 months: N Fall risk comments: 6. Patient on Blood Thinner: None 7. History of Hypertension: Y 8. Opioid Therapy greater than 6 weeks: Y Opiate Contract Signed: 12/04/15 9. Risk Assessment Tool Provided: LOW RISK 0 10. Functional Assessment Tool: 11. Recreational Drug Use: Never Drug Type: Tobacco Use: Never Smoker Tobacco Type: Amount or Packs/day: How Many Years: Alcohol Use: No Frequency: Quant:
--- NOTE | 2018-07-27 00:33 | HPC ---
[facility] [address] [place] [address] PAIN MANAGEMENT CONSULTATION Name: FRANCISCO JENNINGS Room #: REG GRETCHENGarry Butler.#: [id number] Admission: 07/20/18 ������������������ Attend Phys: Pradeep Prado MD Discharge: ������������������ Date of : 65 Report #: [id number] THIS REPORT FOR: //name// CC: Ekaterina Prado DATE OF SERVICE: 07/20/2018 CHIEF COMPLAINT: "My pain was quite intense yesterday. I had to go home from work." HISTORY: The patient is a 53-year-old gentleman who has been followed in the Pain Clinic. As you recall, he has chronic bipedal neuropathy. It has been longstanding. He does have diabetes. He finds his medication has been relatively helpful in the past. He has had a renal transplant and has had pancreas transplant. Overall, things are going reasonably well from that vantage point. He continues to work at [employer], the [employer]. Yesterday, he had to go home because his pain was so intense. Difficulty with his feet. Has been noticing a shooting, shocking type of pain and discomfort, which continues to lancinate and be problematic. It used to may be hourly, yesterday it was more problematic. He never goes home from work, but had to yesterday secondary to the pain. ALLERGIES: No known drug allergies. CURRENT MEDICATIONS: Percocet 10/325 one p.o. q.4-6 hours p.r.n., Trileptal 300 mg b.i.d., lisinopril 100 mg, multivitamin, aspirin 81 mg chewable, Ambien 10 mg, Zyrtec/Zantac 150 mg, prednisone 5 mg, Myfortic 360 mg 3 tabs daily, Prograf 6 tablets t.i.d. PAIN CLINIC ASSESSMENT/PQRS. 1. History of osteoarthritis. The patient has not been treated for osteoarthritis, but has had some pain in his feet bilaterally. He has not been treated for rheumatoid arthritis. 2. Height 5 feet 9 inches, weight 196 pounds, BMI is 29. 3. Vital signs: Blood pressure 149/101, pulse 103, respiratory rate 16, room air saturation 100%. 4. Pain intensity . 5. Fall risk. The patient has not fallen in the last 3 months. 6. Blood thinner. The patient is not on a blood thinning medication. 7. Hypertension. The patient is being treated for hypertension. 8. Opioids greater than 6 weeks. The patient receives his medications from one source, [facility]. 9. Risk assessment tool, low for opioid use. 10. Recreational drug use. The patient denies use of recreational drugs. 11. Functional assessment tool, . [place] [address] PAIN MANAGEMENT CONSULTATION Name: FRANCISCO JENNINGS Room #: REG CLGarry Marianna#: [id number] Admission: 07/20/18 ������������������ Attend Phys: Pradeep Prado MD Discharge: ������������������ Date of : 65 Report #: [id number] 12. Tobacco: The patient has never smoked. 13. Alcohol: The patient denies use of alcoholic beverages. PHYSICAL EXAMINATION: GENERAL: The patient is a well-developed, well-nourished black male, appears to be his stated age. He is alert and oriented x 3. Affect is appropriate. Speech is fluent. HEENT: Normocephalic, atraumatic. Extraocular eye muscles intact. Sclerae nonicteric. Mucous membranes are moist. Hearing is within normal limits. NECK: Without adenopathy or JVD. HEART: Regular rate. S1, S2. LUNGS: Clear to auscultation without rhonchi or rales. MUSCULOSKELETAL: Without significant scoliosis, kyphosis or lordosis. ABDOMEN: Nontender. Bowel sounds present. EXTREMITIES: Upper extremity muscle strength is judged to be 5/5 for the major muscle groups. Lower extremity muscle strength is 5-/5. The patient has pain and discomfort in his feet with a shocking/lancinating type of pain, which is more problematic and was more problematic yesterday secondary to diabetes. IMPRESSION: 1. History of diabetes with diabetic neuropathy in his feet. 2. History of pancreatic transplant with normalization of his glucose levels. 3. Hypertension. 4. Neuropathic pain in the feet. RECOMMENDATIONS: We discussed treatment options with the patient. The patient's pain has become more problematic. He noted a significant increase in pain yesterday. He did require that he go home because the pain was so severe. He has tried Lyrica in the past. This did cause some GI upset in the past. He did try gabapentin. He is not sure how much benefit that would have provided. He felt that it did not work very well because he has had 3 different pains at one time. Had pain from his plantar fasciitis, arthritis as well as increased pain from the diabetes. Feels that maybe at some point another trial of gabapentin might be warranted. He is having some problems sleeping because of the pain, which wakes him up. We have discussed the possibility of adding another medication. We will consider Elavil. We have explained that Elavil can be helpful. It has been used over than years for patients with neuropathic types of pain. Has been helpful with the patient with shingles, with migraine headaches as well as patient with diabetic neuropathy. We will try the patient at 25 mg per day. He will then increase this to 50 mg at night if he is not have any problems and if his pain continues to be problematic. He will call us if he has any concerns. [facility] [address] [place] [address] PAIN MANAGEMENT CONSULTATION Name: FRANCISCO JENNINGSN Room #: REG [facility].#: [id number] Admission: 07/20/18 ������������������ Attend Phys: Pradeep Prado MD Discharge: ������������������ Date of : 65 Report #: [id number] We would like to thank you for letting us participate in his care. We hope he continues to improve. ��������������������������������������������� <ELECTRONICALLY SIGNED> ���������������������������������������� By: Pradeep Prado MD ��������������������������������������������� 07/27/18 0033 [id number] Pradeep Prado MD /nt
== END ==
LOC: PAIN 06:49
DX: I10 Essential (primary) hypertension (principal); M79.2 Neuralgia and neuritis, unspecified; Z86.39 Personal history of other endocrine, nutritional and metabolic disease; Z94.83 Pancreas transplant status; Z87.39 Personal history of other diseases of the musculoskeletal system and connective tissue

== ENCOUNTER → 2018-09-14 | Outpatient (CLI) | payer BC ==
[~2018-09-14] VITALS: Ht 175.3 cm; Wt 87.8 kg
[~2018-09-14] MED LIST changes: +GABAPENTIN 100100 MG PO; +OXCARBAZEPINE300 MG PO
[2018-09-14 08:10] VITALS: BP 150/98
--- NOTE | 2018-09-14 08:15 | NUR ---
Pain Clinic Assessment: 1. History of Osteoarthritis: B/L FEET History of Rheumatoid Arthritis: Not Applicable 2. Height: 5 ft. 9 in. 175.3 cm. Weight: 193.6 lb. oz. 87.816 kg. Patient's BMI: 28.6 3. Vital Signs: BP: 150/98 Pulse: 110 Resp: 16 Temp: 02 Sat: 99 ECG Mon: 4. Pain Intensity: 7 1/2 5. Fall Risk: Dizziness: N Needs help standing or walking: N Fallen in the last 3 months: N Fall risk comments: 6. Patient on Blood Thinner: None 7. History of Hypertension: Y 8. Opioid Therapy greater than 6 weeks: Y Opiate Contract Signed: 12/04/15 9. Risk Assessment Tool Provided: LOW RISK 0 10. Functional Assessment Tool: 11. Recreational Drug Use: Never Drug Type: Tobacco Use: Never Smoker Tobacco Type: Amount or Packs/day: How Many Years: Alcohol Use: No Frequency: Quant:
--- NOTE | 2018-09-17 09:23 | HPC ---
[facility] [address] [place] [address] PAIN MANAGEMENT CONSULTATION Name: FRANCISCO JENNINGS Room #: REG GRETCHENGarry Butler.#: [id number] Admission: 09/14/18 ������������������ Attend Phys: Isabela Ferguson Discharge: ������������������ Date of : 65 Report #: [id number] THIS REPORT FOR: //name// CC: Ekaterina Ferguson DATE OF SERVICE: 09/14/2018 CHIEF COMPLAINT: Chronic bipedal neuropathy. HISTORY OF PRESENT ILLNESS: This is a very pleasant 53-year-old gentleman who returns to the pain clinic today for a refill of his medications for his ongoing bilateral feet pain. He tells me today that his pain is 7-1/2, is a shocking electrical constant feeling in his feet, worse with standing and walking. The medications are helpful. His pain medications are helpful, though Dr. Prado had prescribed Elavil last time to try and help with some increased pain in his feet. He called in and complained of severe dry mouth, so they rotated him to doxepin. He tells us today that that did not help either. He was wondering if there is some other medication that he can try for the increasing shocking feeling that he is having in his feet. He denies any problems with constipation or daytime sleepiness. 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 He had had to go home from work in July due to pain, but he has not had to do that recently. ALLERGIES: No known drug allergies. MEDICATIONS: Oxycodone 10/325 up to 4 times a day, Trileptal 300 mg b.i.d., Ativan 0.5 mg at bedtime, lisinopril 10 mg daily, multivitamin, aspirin, Ambien 10 mg at bedtime, Zantac 150 mg daily, prednisone 5 mg daily, Myfortic 360 mg 2 in the morning and 1 at night and Prograf 6 capsules twice a day. PQRS: 1. He has a history of osteoarthritis in his feet bilaterally. He is not being treated for rheumatoid arthritis. 2. Height is 5 feet 9 inches, weight is 193, BMI is 28. Vital signs 150/98, pulse is 110, respirations 16, oxygen sat is 99, pain score 7-/. Fall risk. He denies dizziness. He does not need help with walking or standing. He has not fallen in the last 3 months. The patient is not on any blood thinners. He does take medicine for hypertension. Opiate therapy is greater than 6 weeks; therefore, an opiate signed contract is on the chart. His risk assessment tool is low. Functional assessment of 3. Recreational drug use, he denies. He is not a smoker and does not drink alcohol. According to the prescription monitoring system, the patient is filling appropriately of his medication and is due for refills today. There is a recent [address] [address] PAIN MANAGEMENT CONSULTATION Name: FRANCISCO JENNINGS Room #: REG [facility] Carrie.#: [id number] Admission: 09/14/18 ������������������ Attend Phys: Isabela Ferguson Discharge: ������������������ Date of : 65 Report #: [id number] drug screen on the chart as well. PHYSICAL EXAMINATION: GENERAL: This is a well-developed, well-nourished black male who appears his stated age. He is alert and orientated. His affect is appropriate, and his speech is fluent. HEENT: Normocephalic, atraumatic. Extraocular eye muscles are intact. Mucous membranes are moist. Hearing is within normal limits. NECK: Without adenopathy or JVD. MUSCULOSKELETAL: Without significant kyphosis, lordosis or scoliosis. EXTREMITIES: Upper extremity strength judged to be 5/5 throughout his major muscle groups and lower extremity strength is 5/5. Pain is in his bilateral feet, a shocking electrical feeling. IMPRESSION: 1. History of diabetes with diabetic neuropathy in his feet, history of pancreatic transplant. 2. Hypertension. 3. Neuropathic pain in his feet bilaterally. 4. Complex medical management in terms of written opioid agreement. We reviewed the fact that opiate medications are being used to provide analgesia adequate to support activities of daily living, not attempting to achieve a specific pain score on the 0-10 Visual Analog Scale. The current opiate medications are providing sufficient analgesia to allow the patient to participate in activities of daily living. The patient is not exhibiting any aberrant behavior suggestive of drug diversion. The patient is not having any adverse reactions to medications. The patient is not suffering from daytime somnolence or mental acuity changes. The patient is managing opiate-induced constipation with appropriate lfxv-kre-ezukpgp agents and dietary considerations. The patient was counseled on concern for caution with operating a motor vehicle while using opiate medications. A physical exam was performed and the patient's functional status was evaluated. All patients with back pain were advised against the bed rest greater than 4 days and were advised to return to normal activities. Pain score assessment was noted and the treatment plan was reviewed with the patient. All current medications, both prescribed and OTC were reviewed and reconciled on the electronic medical record. Tobacco screening was accomplished and smoking cessation was advised when indicated. BMI was noted and diet/exercise modification was recommended for all patients following outside normal parameters. I reviewed with the patient today their responsibilities to safeguard prescription medications, reviewed their responsibility to utilize medications only as prescribed by the physician. They are to seek and receive pain [address] [place] [address] PAIN MANAGEMENT CONSULTATION Name: FRANCISCO JENNINGS Room #: REG [place] M.Pavithra.#: [id number] Admission: 09/14/18 ������������������ Attend Phys: Isabela REJI Ferguson Discharge: ������������������ Date of : 65 Report #: [id number] medications only from 1 physician group ( [facility]). They are to use 1 pharmacy and keep the clinic informed if they change pharmacies. Their responsibilities include making followup visits in a timely fashion and to avoid abrupt discontinuation of medication usage. Their responsibilities further include bringing their medications (bottles from the pharmacy with residual pills) to the visit for possible confirmation of pill counts and the patient understands it is their responsibility to submit to random drug screens to ensure both that the medications prescribed are present, and that no other controlled substances are present. All prescriptions provided today were generated electronically. PLAN: 1. We discussed treatment options today. The patient had talked with Dr. Prado in his last visit about an increase of his electrical shocking feeling in his feet and a trial of Elavil was attempted as well as doxepin. Neither one was helpful. Lyrica caused significant dry mouth. The patient tells me he had been on Lyrica in the past and caused significant GI upset. I questioned him about gabapentin in the past. He tells me he did try it in the past, but he thought that it was supposed to take away his pain. He did not really understand that it was just supposed to lower the intensity, so he thought that it was not working and he had stopped it. He is willing to try this again. 2. We discussed titrating schedule for his gabapentin. I believe that if we start low, the patient will not have side effects that affect his work and is able to tolerate it, so we will start gabapentin 100 mg at night and continue that for 3-5 nights, then increase to 2 at night for 3-5 nights, increase to 3 at night. If he continues to have symptoms, then to start morning dose at 100 in the morning and 3 at night, then the two in the morning, three at night. Our goal dose would be 300 three times a day if he is able to tolerate it, but I informed him the lowest most effective dose. He was given a script for gabapentin 100 mg tablets #180 to titrate up. We will call in higher mg dose once he is titrated to that level. The patient verbalizes understanding and schedule was given to him. 3. Script was also given for Percocet 10/325 q.i.d. 120 for today and 4-week release and oxcarbazepine 300 mg #60 with one additional refill. This places the patient on the prescription monitoring system at 60 morphine milliequivalent, well within the CDC guidelines. 4. The patient is seen in collaboration today with Dr. Gabe Dominguez. ��������������������������������������������� <ELECTRONICALLY SIGNED> ���������������������������������������� By: Isabela Ferguson ��������������������������������������������� 09/17/18 0923 [id number] Isabela Ferguson /nt
== END ==
LOC: PAIN 06:46
DX: G62.89 Other specified polyneuropathies (principal); E11.40 Type 2 diabetes mellitus with diabetic neuropathy, unspecified; I10 Essential (primary) hypertension; Z79.891 Long term (current) use of opiate analgesic

== ENCOUNTER → 2018-11-09 | Outpatient (CLI) | payer BC ==
[~2018-11-09] VITALS: Ht 175.3 cm; Wt 87.3 kg
[2018-11-09 08:14] VITALS: BP 154/90
--- NOTE | 2018-11-09 08:16 | NUR ---
Pain Clinic Assessment: 1. History of Osteoarthritis: B/L FEET History of Rheumatoid Arthritis: Not Applicable 2. Height: 5 ft. 9 in. 175.3 cm. Weight: 192.4 lb. oz. 87.272 kg. Patient's BMI: 28.4 3. Vital Signs: BP: 154/90 Pulse: 108 Resp: 16 Temp: 02 Sat: 100 ECG Mon: 4. Pain Intensity: 7 1/2 5. Fall Risk: Dizziness: N Needs help standing or walking: N Fallen in the last 3 months: N Fall risk comments: 6. Patient on Blood Thinner: None 7. History of Hypertension: Y 8. Opioid Therapy greater than 6 weeks: Y Opiate Contract Signed: 12/04/15 9. Risk Assessment Tool Provided: LOW RISK 0 10. Functional Assessment Tool: 11. Recreational Drug Use: Never Drug Type: Tobacco Use: Never Smoker Tobacco Type: Amount or Packs/day: How Many Years: Alcohol Use: No Frequency: Quant:
--- NOTE | 2018-11-12 11:23 | HPC ---
[facility] [address] [place] [address] PAIN MANAGEMENT CONSULTATION Name: FRANCISCO JENNINGS Room #: REG [place] Carrie.#: [id number] Admission: 11/09/18 Attend Phys: Isabela Ferguson Discharge: Date of : 65 Report #: [id number] THIS REPORT FOR: //name// CC: Ekaterina Ferguson DATE OF SERVICE: 11/09/2018 CHIEF COMPLAINT: Chronic bipedal neuropathy. HISTORY OF PRESENT ILLNESS: This is a very pleasant 53-year-old gentleman who returns to the pain clinic today for a refill of his medications. He finds that the oxycodone does help relieve his pain that he experiences in his bilateral feet as well as oxcarbazepine. He does inform me that he misread the directions for his gabapentin that we are trying to add the last visit he was here to see if that would help with some of the numbness that he is experiencing in his feet and electrical sensation. He is currently taking 300 mg in the morning and he did not titrate it up in the afternoon or the evening. The patient realized this for the last couple of days that he had misread the instructions, so he will now start titrating his evening dose and then the daytime dose if he feels it is needed. The patient reports the pain score of 7-1/2 today. It is worse with standing and walking and again the medications are very beneficial. He denies any problems with constipation or daytime sleepiness from this medication. The patient tells me that he did go to [place] for vacation and find that was very beneficial and spending time with his family. It was nice to have time away. 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 His family was impressed that he conquered that fear. The patient also tells me he is getting ready to send his daughter to [place] for college to play volleyball. He is talking about how proud he is of her. ALLERGIES: No known drug allergies. CURRENT LIST OF MEDICATIONS: Oxycodone 10/325 p.r.n., Neurontin 300 mg in the morning, oxcarbazepine 300 mg b.i.d., lisinopril 10 mg daily, multivitamin, aspirin, Ambien, Zantac, prednisone, Myfortic and Prograf. PQRS: 1. He has osteoarthritis in his feet bilaterally, not being treated for rheumatoid arthritis. 2. Height is 5 feet 9 inches, weight is 192, BMI is 28. 3. Vital signs: Blood pressure 154/90, pulse is 108, respirations 16, oxygen sat is 100. 4. Pain score is 7-1/2. [address] [address] PAIN MANAGEMENT CONSULTATION Name: FRANCISCO JENNINGSN Room #: REG [place] Cabral#: [id number] Admission: 11/09/18 Attend Phys: Isabela Ferguson Discharge: Date of : 65 Report #: [id number] 5. Fall risk. Denies dizziness. Does not need help walking or standing. Has not fallen in the last 3 months. 6. The patient is not on any blood thinners. He does have a history of hypertension. 7. Opioid therapy is greater than 6 weeks; therefore, an opioid signed contract is on the chart. His risk assessment tool is low. Functional assessment is 17/70. 7. Recreational drug use, he denies. He is not a smoker and does not drink alcohol. According to the prescription monitoring system, the patient is filling appropriately for his medications, due for refills today. PHYSICAL EXAMINATION: GENERAL: This is a well-developed, well-nourished black gentleman who appears his stated age, placing his current pain score at 7-1/2. His affect is appropriate. HEENT: Normocephalic, atraumatic. Extraocular eye muscles are intact. Mucous membranes are moist. NECK: Without adenopathy or JVD. MUSCULOSKELETAL: He is without significant kyphosis, lordosis, or scoliosis. EXTREMITIES: His upper extremity strength judged to be 5/5 as well as his lower extremity strength. He does have a shocking electrical numbness feeling in his bilateral feet. IMPRESSION: 1. History of diabetes with diabetic neuropathy. 2. History of pancreatic transplant. 3. Hypertension. 4. Neuropathic pain in his feet bilaterally. 5. Complex medical management in terms of written opioid agreement. We reviewed the fact that opiate medications are being used to provide analgesia adequate to support activities of daily living, not attempting to achieve a specific pain score on the 0-10 Visual Analog Scale. The current opiate medications are providing sufficient analgesia to allow the patient to participate in activities of daily living. The patient is not exhibiting any aberrant behavior suggestive of drug diversion. The patient is not having any adverse reactions to medications. The patient is not suffering from daytime somnolence or mental acuity changes. The patient is managing opiate-induced constipation with appropriate oedt-hlx-lpxkdkv agents and dietary considerations. The patient was counseled on concern for caution with operating a motor vehicle while using opiate medications. A physical exam was performed and the patient's functional status was evaluated. All patients with back pain were advised against the bed rest greater than [address] [address] PAIN MANAGEMENT CONSULTATION Name: FRANCISCO JENNINGS Room #: REG [facility]#: [id number] Admission: 11/09/18 Attend Phys: Isabela MENDOZA Phyllis Discharge: Date of : 65 Report #: [id number] days and were advised to return to normal activities. Pain score assessment was noted and the treatment plan was reviewed with the patient. All current medications, both prescribed and OTC were reviewed and reconciled on the electronic medical record. Tobacco screening was accomplished and smoking cessation was advised when indicated. BMI was noted and diet/exercise modification was recommended for all patients following outside normal parameters. I reviewed with the patient today their responsibilities to safeguard prescription medications, reviewed their responsibility to utilize medications only as prescribed by the physician. They are to seek and receive pain medications only from 1 physician group ( [facility]). They are to use 1 pharmacy and keep the clinic informed if they change pharmacies. Their responsibilities include making followup visits in a timely fashion and to avoid abrupt discontinuation of medication usage. Their responsibilities further include bringing their medications (bottles from the pharmacy with residual pills) to the visit for possible confirmation of pill counts and the patient understands it is their responsibility to submit to random drug screens to ensure both that the medications prescribed are present, and that no other controlled substances are present. All prescriptions provided today were generated electronically. PLAN: 1. We discussed treatment options with the patient today. The patient recently realized he did not increase his gabapentin up to 900 mg as we had discussed at his last visit. Currently taking 300 in the morning. He will start today increasing his bedtime dose one pill every 3-5 days, increasing to 3 tablets then if feels like he needs to, he will increase his midday dose. The patient will call when he gets to his goal dose that he finds most effective and we will call in a prescription. 2. Scripts given today for Percocet 10/325, #120 for release today and 4 weeks and oxcarbazepine 300 mg #60 with one additional refill. 3. Dr. Prado did collaborate care today. The patient will return in 2 months. <ELECTRONICALLY SIGNED> By: Isabela Ferguson 11/12/18 1123 0850 1549 Isabela Ferguson /martin
== END ==
LOC: PAIN 06:38
DX: E11.42 Type 2 diabetes mellitus with diabetic polyneuropathy (principal); I10 Essential (primary) hypertension; Z98.85 Transplanted organ removal status; Z79.899 Other long term (current) drug therapy; Z79.891 Long term (current) use of opiate analgesic

== ENCOUNTER → 2019-01-02 | Outpatient (CLI) | payer BC ==
[~2019-01-02] VITALS: Ht 175.3 cm; Wt 86.6 kg
[~2019-01-02] MED LIST changes: +NEURONTIN 300300 M1 PO
[2019-01-02 08:14] VITALS: BP 127/70
[2019-01-02 08:30] VITALS: BP 157/96
--- NOTE | 2019-01-02 08:40 | NUR ---
Pain Clinic Assessment: 1. History of Osteoarthritis: B/L FEET History of Rheumatoid Arthritis: Not Applicable 2. Height: 5 ft. 9 in. 175.3 cm. Weight: 191.0 lb. oz. 86.637 kg. Patient's BMI: 28.2 3. Vital Signs: BP: 157/96 Pulse: 100 Resp: 14 Temp: 02 Sat: 100 ECG Mon: 4. Pain Intensity: 5 5. Fall Risk: Dizziness: N Needs help standing or walking: N Fallen in the last 3 months: N Fall risk comments: 6. Patient on Blood Thinner: None 7. History of Hypertension: Y 8. Opioid Therapy greater than 6 weeks: Y Opiate Contract Signed: 12/04/15 9. Risk Assessment Tool Provided: LOW RISK 0 10. Functional Assessment Tool: 11. Recreational Drug Use: Never Drug Type: Tobacco Use: Never Smoker Tobacco Type: Amount or Packs/day: How Many Years: Alcohol Use: No Frequency: Quant:
--- NOTE | 2019-01-11 08:26 | HPC ---
[facility] [address] [place] [address] PAIN MANAGEMENT CONSULTATION Name: FRANCISCO JENNINGS Room #: REG [place] Marianna#: [id number] Admission: 01/02/19 Attend Phys: Pradepe Prado MD Discharge: Date of : 65 Report #: [id number] THIS REPORT FOR: //name// CC: Ekaterina Prado DATE OF SERVICE: 01/02/2019 CHIEF COMPLAINT: Here for medication renewal. HISTORY: The patient is a 53-year-old gentleman with a history of chronic pain. It involves his legs. He suffers from neuropathy. This has been longstanding bipedal neuropathy, and suffer from diabetes. As you may recall, he has undergone a renal transplant. He has had a pancreatic transplant as well. Overall, things are going reasonably well. Notes that he is 50% better with use of his medications. The patient has in the past had problems with plantar fasciitis as well. ALLERGIES: No known drug allergies. CURRENT MEDICATIONS: Percocet 10/325 one p.o. q.4-6 hours, Trileptal 300 mg b.i.d., lisinopril 100 mg, multivitamins, aspirin 81 mg chewable, Ambien 10 mg, Zantac 150 mg, prednisone 5 mg, Myfortic 360 mg 3 tablets daily, and Prograf 6 tablets t.i.d. PAIN CLINIC ASSESSMENT/PQRS: 1. History of osteoarthritis. The patient has pain involving his feet with bilateral neuropathy. He is not being treated for rheumatoid arthritis. 2. Height 5 feet 9 inches, weight 191 pounds, BMI is 28.2. 3. Vital signs: Blood pressure 157/96, pulse 100, respiratory rate 14, room air saturation 100%. 4. Pain intensity /10. 5. Fall history: The patient has not fallen since we saw him last. 6. Blood thinner. The patient is not on a blood thinning medication. 7. Hypertension. The patient is being treated for hypertension. 8. Opioids greater than 6 weeks. 9. Risk assessment tool, low for opioid use. 10. Functional assessment tool, . 11. Recreational drug use. The patient denies. 12. Tobacco: The patient has never smoked. 13. Alcohol. The patient denies use of alcoholic beverages. PHYSICAL EXAMINATION: GENERAL: The patient is a well-developed, well-nourished black gentleman. He appears his stated age. He is alert and oriented x 3. His affect is [facility] [address] [place] [address] PAIN MANAGEMENT CONSULTATION Name: FRANCISCO JENNINGS Room #: REG [facility]#: [id number] Admission: 01/02/19 Attend Phys: Pradeep Prado MD Discharge: Date of : 65 Report #: [id number] appropriate. Speech is fluent. HEENT: Normocephalic, atraumatic. Extraocular eye muscles intact. Sclerae nonicteric. Mucous membranes are moist. The patient is wearing glasses. NECK: Without adenopathy or JVD. MUSCULOSKELETAL: Without significant scoliosis, kyphosis, or lordosis. EXTREMITIES: Upper extremity muscle strength is judged to be 5/5 for the major muscle groups in the upper extremity as well as 5/5 for the major muscle groups in the lower extremity. The patient does have neuropathy with shocking electrical numbness in his feet bilaterally. IMPRESSION: 1. History of diabetes with diabetic neuropathy, treated with medications. 2. History of pancreatitis, transplant. 3. History of renal transplant. 3. Hypertension. 4. Neuropathic pain in the feet bilaterally. 5. Complex medical management using opioids to help control the pain. RECOMMENDATIONS: We discussed treatment options with the patient. Overall, he feels that things are going reasonably well. We will continue with his medications as prescribed. He is aware that opioid medications can be problematic in certain people. He feels that the use of the OxyContin 10 mg 1 p.o. q.i.d. helps him adjust the pain. He continues to work at [employer] at a high functioning capacity. He does not have any problems with mentation. He feels that the gabapentin is helpful as well as the oxcarbazepine 300 mg b.i.d. A script for his medications has been written. The patient will follow up in the near future. He will call us if he has any concerns. We would like to thank you for letting us participate in his care. We hope he continues to improve. <ELECTRONICALLY SIGNED> By: Pradeep Prado MD 01/11/19 0826 2019 0144 Pradeep Prado MD /KATHY
== END ==
LOC: PAIN 06:48
DX: E11.40 Type 2 diabetes mellitus with diabetic neuropathy, unspecified (principal); I10 Essential (primary) hypertension; Z79.891 Long term (current) use of opiate analgesic; Z94.0 Kidney transplant status

== ENCOUNTER → 2019-02-27 | Outpatient (CLI) | payer BC ==
[~2019-02-27] VITALS: Ht 175.3 cm; Wt 86.7 kg
[~2019-02-27] MED LIST changes: +NEURONTIN300 MG PO
[2019-02-27 09:43] VITALS: BP 130/84
--- NOTE | 2019-02-27 09:48 | NUR ---
Pain Clinic Assessment: 1. History of Osteoarthritis: B/L FEET History of Rheumatoid Arthritis: Not Applicable 2. Height: 5 ft. 9 in. 175.3 cm. Weight: 191.2 lb. oz. 86.728 kg. Patient's BMI: 28.2 3. Vital Signs: BP: 130/84 Pulse: 90 Resp: 18 Temp: 02 Sat: 98 ECG Mon: 4. Pain Intensity: 7 5. Fall Risk: Dizziness: N Needs help standing or walking: N Fallen in the last 3 months: N Fall risk comments: 6. Patient on Blood Thinner: None 7. History of Hypertension: Y 8. Opioid Therapy greater than 6 weeks: Y Opiate Contract Signed: 12/04/15 9. Risk Assessment Tool Provided: LOW RISK 0 10. Functional Assessment Tool: 11. Recreational Drug Use: Never Drug Type: Tobacco Use: Never Smoker Tobacco Type: Amount or Packs/day: How Many Years: Alcohol Use: No Frequency: Quant:
--- NOTE | 2019-02-27 13:35 | HPC ---
[facility] [place] [address] PAIN MANAGEMENT CONSULTATION Name: FRANCISCO JENNINGS Room #: REG [place]#: [id number] Admission: 02/27/19 Attend Phys: Isabela Ferguson Discharge: Date of : 65 Report #: [id number] THIS REPORT FOR: //name// CC: Ekaterina Prado MD DATE OF SERVICE: 02/27/2019 CHIEF COMPLAINT: Chronic neuropathy and left hand pain. HISTORY OF PRESENT ILLNESS: This is a very pleasant 53-year-old gentleman with a longstanding history of bipedal neuropathy, suffers from diabetes and also has had pancreatic and renal transplants. He uses his medication for his neuropathy and finds it very beneficial, though he is complaining of pain of a 6-7 today, which seems high, but he reports it is a good day. His pain is worse when he is walking on his feet because it is electrical constant pain that he feels. He says that sitting is better as well as all of his medications are very beneficial. He denies any problems with constipation or daytime sleepiness. He would like refills of this medicine today. The patient reports that he had a left trigger thumb surgery from [facility] Dr. Cope on Monday. This is wrapped with an Compa bandage. He reports this is not causing him any additional pain. He refused any prescriptions that they offered him during postoperative period due to his contract with us. ALLERGIES: No known drug allergies. CURRENT LIST OF MEDICATIONS: Trileptal 300 mg b.i.d.; gabapentin 300 mg 2 in the morning, one midday, 1 at bedtime; Percocet 10/325 up to 4 times a day; Ativan p.r.n.; lisinopril; multivitamin; aspirin; Ambien; prednisone; Myfortic and Prograf. PQRS: 1. He has osteoarthritis involving his bilateral feet. Denies any rheumatoid arthritis. 2. Height is 5 feet 9 inches, weight is 191, BMI is 28. 3. Vital signs; 130/84, pulse is 90, respirations 18, oxygen sat is 98. 4. Pain score 7/10. 5. Denies dizziness, does not need help walking or standing, has not fallen in the last 3 months. 6. The patient is not on any blood thinners, but does have a history of hypertension. 7. Opiate therapy is greater than 6 weeks; therefore, an opioid signed contract is on the chart. Risk assessment tool is [place] [address] PAIN MANAGEMENT CONSULTATION Name: FRANCISCO JENNINGS Room #: REG [facility].#: [id number] Admission: 02/27/19 Attend Phys: Isabela Ferguson Discharge: Date of : 65 Report #: [id number] 8. Recreational drug use, he denies. He is not a smoker. Does not drink alcohol. According to the prescription monitoring system, the patient is filling appropriately for his medication. He is due to this weekend for these medicines. There is a recent drug screen on the chart that is appropriate as well. We will repeat that in his next visit. According to the CDC guidelines, his morphine mEq is 60 morphine mEq. PHYSICAL EXAMINATION: GENERAL: This is alert and orientated, well-nourished, well-developed 53-year-old that appears his stated age, placing his current pain score at 6/10 today. HEENT: Normocephalic, atraumatic. Extraocular eye muscles are intact. Mucous membranes are moist. NECK: Without adenopathy or JVD. MUSCULOSKELETAL: Without significant scoliosis, kyphosis or lordosis. He has neuropathy with shocking electrical feeling in his bilateral feet. He has a gauze wrap on his left hand from recent surgery. I did not examine this today. His upper and lower extremity strength judged to be 5/5 for all major muscle groups with good sensation. IMPRESSION: 1. History of diabetes with diabetic neuropathy. 2. History of pancreatic and renal transplant. 3. Hypertension. 4. Neuropathy. No neuropathic pain in feet bilaterally. 5. Complex medical management under terms of written opioid agreement. PLAN: 1. We discussed treatment options with the patient today. He feels that he is well controlled with his current medications. He is able to actively participate in his job and activities at home without any adverse reactions to his medications and the medications do produce sufficient analgesic response for him. We will refill his oxycodone 10/325, #120 for today and 4-week release. 2. The patient is not needing his Trileptal or gabapentin refilled. He currently has refills of the pharmacy for that medication. 3. Dr. Daniel Prado did see the patient and collaborated care. The patient will return in 2 months. <ELECTRONICALLY SIGNED> By: Isabela Ferguson 02/27/19 1335 [id number] Isabela Ferguson /nt
== END ==
LOC: PAIN 06:44
DX: M79.642 Pain in left hand (principal); E11.40 Type 2 diabetes mellitus with diabetic neuropathy, unspecified; I10 Essential (primary) hypertension; Z79.891 Long term (current) use of opiate analgesic

== ENCOUNTER → 2019-04-26 | Outpatient (CLI) | payer BC ==
[~2019-04-26] VITALS: Ht 175.3 cm; Wt 88.0 kg
[2019-04-26 08:24] VITALS: BP 154/94
--- NOTE | 2019-04-26 08:31 | NUR ---
Pain Clinic Assessment: 1. History of Osteoarthritis: B/L FEET History of Rheumatoid Arthritis: Not Applicable 2. Height: 5 ft. 9 in. 175.3 cm. Weight: 194.0 lb. oz. 87.998 kg. Patient's BMI: 28.6 3. Vital Signs: BP: 154/94 Pulse: 99 Resp: 16 Temp: 02 Sat: 100 ECG Mon: 4. Pain Intensity: 6 5. Fall Risk: Dizziness: N Needs help standing or walking: N Fallen in the last 3 months: N Fall risk comments: 6. Patient on Blood Thinner: None 7. History of Hypertension: Y 8. Opioid Therapy greater than 6 weeks: Y Opiate Contract Signed: 12/04/15 9. Risk Assessment Tool Provided: LOW RISK 0 10. Functional Assessment Tool: 11. Recreational Drug Use: Never Drug Type: Tobacco Use: Never Smoker Tobacco Type: Amount or Packs/day: How Many Years: Alcohol Use: No Frequency: Quant:
--- NOTE | 2019-05-10 08:40 | HPC ---
[facility] [address] [address] PAIN MANAGEMENT CONSULTATION Name: FRANCISCO JENNINGS Room #: REG [place] MoyAllanPavithraAllan#: [id number] Admission: 04/26/19 Attend Phys: Pradeep Prado MD Discharge: Date of : 65 Report #: [id number] THIS REPORT FOR: cc: Ekaterina Gomez DPM, Ali R. DPM Brown, N. Wayne MD ~ THIS REPORT FOR: //name// CC: Ekaterina Prado DATE OF SERVICE: 04/26/2019 CHIEF COMPLAINT: Pain in both feet. HISTORY: The patient is a 54-year-old gentleman who has been seen in the pain clinic because of chronic pain. He has bilateral pain with history of neuropathy. He has undergone pancreatic and renal transplants. He finds that neuropathy continues to be problematic. He feels that his medications were helpful. Does stay quite busy on his job. When he is walking for prolonged periods of time he notes worsening of pain and discomfort. Standing is problematic. He describes the pain as an electrical type of discomfort. Described as constant. It involves his feet bilaterally. He has noted worsening of pain in his right foot. He is considering going on vacation. He would like to be able to go on vacation without a cast on his foot. He has taken his medication as prescribed. He has been told that he has Charcot foot problems associated with diabetes. He has noted some swelling in both feet. ALLERGIES: No known drug allergies. CURRENT MEDICATIONS: Trileptal 300 mg b.i.d., gabapentin 300 mg 2 tablets in the morning, 1 midday, 1 bedtime, Percocet 10/325 one p.o. q.i.d., Ativan p.r.n., lisinopril, multivitamins, aspirin, Ambien, prednisone, Myfortic, and Prograf. PAIN CLINIC ASSESSMENT AND PQRS 1. History of osteoarthritis involving his feet bilaterally, now with Charcot foot disease. 2. The patient is not being treated for rheumatoid arthritis. 3. Height 5 feet 9 inches, weight 194 pounds, BMI is 28.6. 4. Vital signs: Blood pressure 154/94, pulse 99, respiratory rate 16, room air saturation 100%. 5. Pain intensity 6-7/10 with pain involving both feet with some swelling noted. 6. Fall history: The patient has not fallen in the last 3 months. 7. Blood thinner. The patient is not taking a blood thinning medication. [facility] [address] [place] [address] PAIN MANAGEMENT CONSULTATION Name: FRANCISCO JENNINGS Room #: REG [facility]#: [id number] Admission: 04/26/19 Attend Phys: Pradeep Prado MD Discharge: Date of : 65 Report #: [id number] 8. Hypertension. The patient is being treated for hypertension. 9. Opioids greater than 6 weeks. The patient received medication from one source, pain clinic. 10. Risk assessment tool, low for opioid use. 11. Functional assessment tool . 12. Recreational drugs: The patient denies. 13. Tobacco: The patient does not smoke. Denies use of vaping. 14. Alcohol. The patient denies use of alcoholic beverages. PHYSICAL EXAMINATION: GENERAL: The patient is a well-developed, well-nourished black male, appears his stated age. He is alert and oriented x 3. His affect is appropriate. Speech is fluent. HEENT: Normocephalic, atraumatic. Extraocular eye muscles intact. Sclerae nonicteric. Mucous membranes are moist. NECK: Without adenopathy or JVD. HEART: Regular rate. ABDOMEN: Nontender. MUSCULOSKELETAL: Upper extremity muscle strength judged to be 5/5 for the major muscle groups in the upper extremity. Lower extremity, the patient has pain and discomfort in the feet and his feet bilaterally. Does note some increased pain and discomfort involving the right lower extremity and foot. Has continued to experience a shocking numbness type feeling in his feet bilaterally with neuropathic characteristics. IMPRESSION: 1. History of diabetes with diabetic neuropathy with findings of Charcot foot involving the right side. 2.. History of pancreatitis, status post transplantation. 3. History of renal transplantation. 4. Hypertension. 5. Neuropathy and pain in his feet bilaterally. 6. Complex medical management to help control pain and neuropathy using opioids. RECOMMENDATIONS: We discussed treatment options with the patient. Overall, the patient feels that his medications continue to be helpful. He is experiencing some increased pain and discomfort. He feels that the Trileptal medications in combination with Percocet continued to be helpful. He rates his pain today as 6-7/10. He states that he has been told that he has some fractures in his right foot. They are as a result of Charcot foot. This is often times associated with 10% of people with diabetes. The patient continues to work at [employer] in a high functioning capacity. He is not having any problems with his current medication. We will continue with his medication. He is hopeful of going to [place] in the near future. He hopes that he can go without having to wear a cast on his foot. A script for his medications of gabapentin 300 mg [address] [address] PAIN MANAGEMENT CONSULTATION Name: FRANCISCO JENNINGS Room #: REG [facility].#: [id number] Admission: 04/26/19 Attend Phys: Pradeep Prado MD Discharge: Date of : 65 Report #: [id number] t.i.d., Trileptal 300 mg 1 p.o. b.i.d. to t.i.d. and Percocet 10/325, total of 120 mg have been provided. The patient has been given a 1-month supply as well as a second month of medications. He will follow up in the near future. We would like to thank you for letting us participate in his care. We hope he continues to improve. <ELECTRONICALLY SIGNED> By: Pradeep Prado MD 05/10/19 0840 [id number] Pradeep Prado MD /nt
== END ==
LOC: PAIN 06:36
DX: G89.29 Other chronic pain (principal); E11.610 Type 2 diabetes mellitus with diabetic neuropathic arthropathy; E11.40 Type 2 diabetes mellitus with diabetic neuropathy, unspecified; Z94.0 Kidney transplant status; Z94.83 Pancreas transplant status; Z79.899 Other long term (current) drug therapy; Z79.891 Long term (current) use of opiate analgesic

== ENCOUNTER → 2019-07-19 | Outpatient (CLI) | payer BC ==
[~2019-07-19] VITALS: Ht 175.3 cm; Wt 87.7 kg
[~2019-07-19] MED LIST changes: +PEPCID20 MG PO; +PROGRAF 1 MG1 MG PO; -PROGRAF1 MG PO
[2019-07-19 08:14] VITALS: BP 161/90
--- NOTE | 2019-07-19 08:16 | NUR ---
Pain Clinic Assessment: 1. History of Osteoarthritis: B/L FEET History of Rheumatoid Arthritis: Not Applicable 2. Height: 5 ft. 9 in. 175.3 cm. Weight: 193.4 lb. oz. 87.726 kg. Patient's BMI: 28.5 3. Vital Signs: BP: 161/90 Pulse: 97 Resp: 18 Temp: 02 Sat: 100 ECG Mon: 4. Pain Intensity: 8 5. Fall Risk: Dizziness: N Needs help standing or walking: N Fallen in the last 3 months: N Fall risk comments: 6. Patient on Blood Thinner: None 7. History of Hypertension: Y 8. Opioid Therapy greater than 6 weeks: Y Opiate Contract Signed: 12/04/15 9. Risk Assessment Tool Provided: LOW RISK 0 10. Functional Assessment Tool: 11. Recreational Drug Use: Never Drug Type: Tobacco Use: Never Smoker Tobacco Type: Amount or Packs/day: How Many Years: Alcohol Use: No Frequency: Quant:
--- NOTE | 2019-07-31 08:03 | HPC ---
[facility] [address] [place] [address] PAIN MANAGEMENT CONSULTATION Name: FRANCISCO JENNINGS Room #: REG [place] MoyAllanPavithraAllan#: [id number] Admission: 07/19/19 Attend Phys: Pradeep Prado MD Discharge: Date of : 65 Report #: [id number] THIS REPORT FOR: cc: Ekaterina Gomez DPM, Ali R. DPM Brown, N. Wayne MD ~ CC: Ekaterina Prado DATE OF SERVICE: 07/19/2019 CHIEF COMPLAINT: Bilateral foot pain. HISTORY: The patient is a 54-year-old gentleman who has been followed in the pain clinic because of chronic foot pain. He returns today indicating that his pain continues to be helped with his medications. It still is quite problematic and he rates it as an 8 today. It can be anywhere between 5 and 10. He is quite busy at his job. He is up and much more active. This has exacerbated his pain. He feels that his pain medications are helpful. He would like to continue their use. He still feels that there is electrical component to the pain and discomfort he is experiencing. Walking, standing can make things worse. ALLERGIES: No known drug allergies. CURRENT MEDICATIONS: Trileptal 300 mg b.i.d., gabapentin 300 mg 2 tablets in the morning, 1 midday, 1 at bedtime, Percocet 10/325 one p.o. q.i.d., Ativan p.r.n., lisinopril, multivitamins, aspirin, Ambien, prednisone, Myfortic, Prograf. PAIN CLINIC ASSESSMENT AND PQRS: 1. The patient has a history of osteoarthritis involving his feet bilaterally, now with Charcot foot disease. 2. The patient is not being treated for rheumatoid arthritis. 3. Height: 5 feet 9 inches, weight 193 pounds, BMI is 28.5. 4. Vital Signs: Blood pressure 161/90, pulse 97, respiratory rate 18, room air saturation is 100%. 5. Pain intensity: 11/10. 6. Fall risk: The patient has not fallen in the last 3 months. 7. Blood thinner: The patient is not on a blood thinning medication. 8. Hypertension: The patient is being treated for hypertension. 9. Opioids greater than 6 weeks: The patient receives medications from the pain clinic. 10. Functional assessment tool: . 11. Recreational drug use: The patient denies. 12. Tobacco: [place] [address] PAIN MANAGEMENT CONSULTATION Name: FRANCISCO JENNINGS Room #: REG [facility]#: [id number] Admission: 07/19/19 Attend Phys: Pradeep Prado MD Discharge: Date of : 65 Report #: [id number] 13. Alcohol: The patient denies frequent use of alcoholic beverages. PHYSICAL EXAMINATION: GENERAL: The patient is a well-developed, well-nourished black male, appears his stated age. He is alert and oriented x 3. His affect is appropriate. Speech is fluent. HEENT: Normocephalic, atraumatic. Extraocular eye muscles intact. Sclerae nonicteric. Mucous membranes are moist. NECK: Without adenopathy or JVD. ABDOMEN: Nontender. MUSCULOSKELETAL: Upper extremity, 5/5 for the major muscle groups in the upper extremity. The patient has pain and discomfort in the lower portion of his feet. He notes some increased pain with neuropathic pain with a shocking sensation and feeling of electricity in his lower extremities bilaterally. He has a neuropathic characteristics to the pain and discomfort. IMPRESSION: 1. History of diabetes with diabetic neuropathy with findings of Charcot foot involving the right side. 2. History of pancreatitis, status post transplantation. 3. History of renal transplantation. 4. Hypertension. 5. Neuropathy with pain in his feet bilaterally. 6. Complex medical management to help control pain and neuropathy in his feet using opioids. RECOMMENDATIONS: We discussed treatment options with the patient. Risks and benefits of these medications have again been reviewed. The patient is aware that these medications can become less effective as time goes on because of the development of tolerance. The patient feels that these medications continue to be helpful. He is able to stay gainfully employed. He is more busy at work because of the increased activity. A script for his medications of gabapentin 300 mg 1 p.o. midday and at bedtime and 2 tablets in the morning have been rewritten. The patient will also continue with the Trileptal 300 mg daily b.i.d. He will continue with oxycodone 10 mg 1 p.o. 4 times daily. A script for these medications has been written for the next 2 months. We would like to thank you for letting us participate in his care. We hope he continues to improve. <ELECTRONICALLY SIGNED> By: Pradeep Prado MD 07/31/19 [id number] [id number] Pradeep Prado MD /martin
== END ==
LOC: PAIN 07:45
DX: G62.89 Other specified polyneuropathies (principal); I10 Essential (primary) hypertension; F11.20 Opioid dependence, uncomplicated; E11.9 Type 2 diabetes mellitus without complications; Z85.07 Personal history of malignant neoplasm of pancreas; Z94.0 Kidney transplant status; Z79.899 Other long term (current) drug therapy

== ENCOUNTER → 2019-09-13 | Outpatient (CLI) | payer BC ==
[~2019-09-13] VITALS: Ht 175.3 cm; Wt 85.4 kg
[~2019-09-13] MED LIST changes: +OXTELLAR XR300 MG PO
[2019-09-13 08:26] VITALS: BP 144/88
--- NOTE | 2019-09-13 08:38 | NUR ---
Pain Clinic Assessment: 1. History of Osteoarthritis: B/L FEET History of Rheumatoid Arthritis: Not Applicable 2. Height: 5 ft. 9 in. 175.3 cm. Weight: 188.2 lb. oz. 85.367 kg. Patient's BMI: 27.8 3. Vital Signs: BP: 144/88 Pulse: 99 Resp: 16 Temp: 02 Sat: 100 ECG Mon: 4. Pain Intensity: 6-7 5. Fall Risk: Dizziness: N Needs help standing or walking: N Fallen in the last 3 months: N Fall risk comments: 6. Patient on Blood Thinner: None 7. History of Hypertension: Y 8. Opioid Therapy greater than 6 weeks: Y Opiate Contract Signed: 12/04/15 9. Risk Assessment Tool Provided: LOW RISK 0 10. Functional Assessment Tool: 11. Recreational Drug Use: Never Drug Type: Tobacco Use: Never Smoker Tobacco Type: Amount or Packs/day: How Many Years: Alcohol Use: No Frequency: Quant:
--- NOTE | 2019-09-27 09:39 | HPC ---
[facility] [address] [place] [address] PAIN MANAGEMENT CONSULTATION Name: FRANCISCO JENNINGS Room #: REG [place].#: [id number] Admission: 09/13/19 Attend Phys: Pradeep Prado MD Discharge: Date of : 65 Report #: [id number] THIS REPORT FOR: cc: Ekaterina Gomez DPM, Ali R. DPM Brown, N. Wayne MD ~ CC: Ekaterina Prado DATE OF SERVICE: 09/13/2019 CHIEF COMPLAINT: Bilateral foot pain. HISTORY: The patient is a 54-year-old gentleman who has been followed in the pain clinic because of chronic foot pain. He has pain, which is quite problematic. He has findings consistent with charcot foot. This involves primarily the right side. He finds his medications are helpful. He still has pain, which is quite problematic. He remains gainfully employed. He feels his medications are helpful. He rates his pain as a 6-7/10 today. He has return with the hopes of renewing his medications. He feels the oxycodone medications are helpful. He is able to think clearly. They are not causing any problems with his sensorium. ALLERGIES: No known drug allergies. CURRENT MEDICATIONS: Trileptal 300 mg b.i.d., gabapentin 300 mg 2 tablets in the morning, 1 midday, 1 at bedtime, Percocet 10/325 one p.o. q.i.d., Ativan p.r.n., lisinopril, multivitamins, aspirin, Ambien, prednisone, Myfortic, Prograf. PAIN CLINIC ASSESSMENT/PQRS: 1. The patient has a history of osteoarthritis and arthritic changes in his feet bilaterally. He is now complaining of charcot foot disease. 2. Height 5 feet 9 inches, weight 180 pounds, BMI is 27.8. 3. Vital signs: Blood pressure 144/88, pulse 99, respiratory rate 16, room air saturation is 100%. 4. Pain intensity -10/10. 5. Fall risk. The patient has not fallen in the last 3 months. 6. Blood thinner. The patient is not on a blood thinning medication. 7. Hypertension. The patient is being treated for hypertension. 8. Opioids greater than 6 weeks. The patient receives medication from the pain clinic. 9. Risk assessment tool, low for opioid use. 10. Functional assessment tool . 11. Recreational drug use: The patient denied. 12. Tobacco: [place] [address] PAIN MANAGEMENT CONSULTATION Name: FRANCISCO JENNINGS Room #: REG [facility].#: [id number] Admission: 09/13/19 Attend Phys: Pradeep Prado MD Discharge: Date of : 65 Report #: [id number] 13. Alcohol. The patient denies frequent use of alcoholic beverages. PHYSICAL EXAMINATION: GENERAL: The patient is a well-developed, well-nourished black male, appears his stated age. He is alert and oriented x 3. His affect is appropriate. Speech is fluent. HEENT: Normocephalic, atraumatic. Extraocular eye muscles intact. The patient is wearing glasses. NECK: Without adenopathy or JVD. ABDOMEN: Nontender. MUSCULOSKELETAL: Upper extremity muscle strength judged to be 5/5 for the major muscle groups in the upper extremity. The patient has pain and discomfort of neuropathic nature down into his feet. Complains of a shocking sensation of electricity. He would like to continue with his medications. Notes that the increased pain is noted when he is walking and standing on his feet for long periods of time. IMPRESSION: 1. History of diabetic neuropathy with charcot foot involving the right side. 2. History of pancreatitis, status post transplantation. 3. History of renal transplantation. 4. Hypertension. 5. Neuropathy. The patient has pain in his feet bilaterally. 6. Complex medical management using opioids and other medications to help control chronic foot pain. RECOMMENDATIONS: We discussed treatment options with the patient. At this juncture, we will continue with his medications. He has taken the medication as prescribed. He notes that they become less effective as time goes on because of development of tolerance. He is able to think clearly. He finds these medications enable him to remain working. A script for his medications has been rewritten. A 2-month supply of oxycodone 10 mg 1 p.o. q.i.d. has been provided. The patient will call us if he has any concerns. We would like to thank you for letting us to participate in his care. We hope he continues to improve. <ELECTRONICALLY SIGNED> By: Pradeep Prado MD 09/27/19 0939 [id number] Pradeep Prado MD /[facility]
== END ==
LOC: PAIN 06:48
PROVIDERS: ATTEND Anesthesiology Pain Medicine
DX: M79.672 Pain in left foot (principal); M79.671 Pain in right foot; E11.40 Type 2 diabetes mellitus with diabetic neuropathy, unspecified; I10 Essential (primary) hypertension; F11.20 Opioid dependence, uncomplicated; Z87.19 Personal history of other diseases of the digestive system; Z94.0 Kidney transplant status; Z79.899 Other long term (current) drug therapy

== ENCOUNTER → 2019-11-06 | Outpatient (CLI) | payer BC ==
[~2019-11-06] VITALS: Ht 175.3 cm; Wt 84.8 kg
[2019-11-06 12:40] VITALS: BP 123/85
--- NOTE | 2019-11-06 13:10 | NUR ---
Pain Clinic Assessment: 1. History of Osteoarthritis: B/L FEET History of Rheumatoid Arthritis: Not Applicable 2. Height: 5 ft. 9 in. 175.3 cm. Weight: 187.0 lb. oz. 84.823 kg. Patient's BMI: 27.6 3. Vital Signs: BP: 123/85 Pulse: 90 Resp: 14 Temp: 02 Sat: 100 ECG Mon: 4. Pain Intensity: 6 5. Fall Risk: Dizziness: N Needs help standing or walking: N Fallen in the last 3 months: N Fall risk comments: 6. Patient on Blood Thinner: None 7. History of Hypertension: Y 8. Opioid Therapy greater than 6 weeks: Y Opiate Contract Signed: 12/04/15 9. Risk Assessment Tool Provided: LOW RISK 0 10. Functional Assessment Tool: 11. Recreational Drug Use: Never Drug Type: Tobacco Use: Never Smoker Tobacco Type: Amount or Packs/day: How Many Years: Alcohol Use: No Frequency: Quant:
--- NOTE | 2019-11-07 09:10 | HPC ---
[facility] [address] [place] [address] PAIN MANAGEMENT CONSULTATION Name: FRANCISCO JENNINGS Room #: REG [place] Carrie.#: [id number] Admission: 11/06/19 Attend Phys: Isabela Ferguson Discharge: Date of : 65 Report #: [id number] THIS REPORT FOR: cc: Ekaterina Gomez DPM, Ali R. DPM Hocker, Amanda CNS ~ CC: Scarlett Prado MD DATE OF SERVICE: 11/06/2019 CHIEF COMPLAINT: Bilateral foot pain. HISTORY OF PRESENT ILLNESS: This is a 54-year-old gentleman who returns to the pain clinic today for refill of his medications that he uses to help treat his ongoing bilateral foot pain that is consistent with Charcot foot. He finds his medications that we provide of oxycodone, Trileptal and gabapentin very beneficial in helping reduce his pain. 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 He is stating his pain score today is a 6/10, at times it is electrical feeling that it is usually constant, most significantly in the right foot. He does report that walking and standing are worse, but these medications as I say enable him to work form maker. He denies any problems with constipation or daytime somnolence. The patient reports that he is staying healthy and well. 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 ALLERGIES: No known drug allergies. CURRENT LIST OF MEDICATIONS: Oxycodone 10/325 p.r.n., gabapentin, oxcarbazepine, Pepcid, lisinopril, lorazepam, multivitamin, aspirin, Ambien, prednisone, Myfortic and Prograf. PQRS: 1. He has osteoarthritis of his feet. Denies any rheumatoid arthritis. 2. Height is 5 feet 9 inches, weight is 187, BMI is 27. 3. Vital signs, blood pressure 123/85, pulse is 90, respirations 14, and oxygen sat is 100. 4. Pain score 6/10. 5. Denies dizziness, does not need help walking or standing, has not fallen in the last 3 months. He is not on any blood thinners, but does take medicine for hypertension. His opioid therapy is greater than 6 weeks; therefore, an opioid signed contract is on the chart. Risk assessment tool is low. Functional assessment is . 6. Recreational drug use, he denies. He is not a smoker and does not drink alcohol. [address] [address] PAIN MANAGEMENT CONSULTATION Name: FRANCISCO JENNINGS Room #: REG [facility].#: [id number] Admission: 11/06/19 Attend Phys: Isabela Ferguson Discharge: Date of : 65 Report #: [id number] According to the prescription monitoring system, the patient is due to fill later this week, filling in a timely fashion. His morphine mEq is 60 MMEs today and today, we will collect a random drug screen for his medications this visit. PHYSICAL EXAMINATION: GENERAL: This is an alert and orientated, well-developed, well-nourished black male who appears his stated age. His affect is appropriate and his speech is fluent. HEENT: Normocephalic, atraumatic. Extraocular eye muscles are intact. He is wearing glasses and a mask. NECK: Without adenopathy or JVD. MUSCULOSKELETAL: The patient has discomfort and pain of neuropathic nature in his feet bilaterally, greater on the right shoulder. He states it is electrical shocking sensation. Upper and lower extremity strength judged to be 5/5 with all major muscle groups. He has a slightly antalgic gait at times due to his increased pain. IMPRESSION: 1. History of diabetic neuropathy, which Charcot foot involving the right side. 2. History of pancreatitis, status post transplantation. 3. History of renal transplantation. 4. Hypertension. 5. Neuropathy. 6. Complex medical management utilizing opioids and other medications. We reviewed the fact that opiate medications are being used to provide analgesia adequate to support activities of daily living, not attempting to achieve a specific pain score on the 0-10 Visual Analog Scale. The current opiate medications are providing sufficient analgesia to allow the patient to participate in activities of daily living. The patient is not exhibiting any aberrant behavior suggestive of drug diversion. The patient is not having any adverse reactions to medications. The patient is not suffering from daytime somnolence or mental acuity changes. The patient is managing opiate-induced constipation with appropriate bccc-seo-fpejjik agents and dietary considerations. The patient was counseled on concern for caution with operating a motor vehicle while using opiate medications.. PLAN: 1. We discussed treatment options with the patient today. The patient feels that the medications are very beneficial in allowing him to work with very minimal side effects. He denies any overmedicated feeling or constipation. Today, we will have Dr. Daniel Prado send his Percocet , #120 for today and 4-week release. 2. The patient is not needing a fill on his Trileptal or gabapentin, dose will be filled at his next visit. [address] [address] PAIN MANAGEMENT CONSULTATION Name: FRANCISCO JENNINGS Room #: REG CLI Carrie.#: [id number] Admission: 11/06/19 Attend Phys: Isabela Ferguson Discharge: Date of : 65 Report #: [id number] 3. We will have him have updated his opioid agreement and has been several years and we will collect a random drug screen on him as well today. 4. The patient is seen in collaboration with Dr. Prado. <ELECTRONICALLY SIGNED> By: Isabela Ferguson 11/07/19 0910 [id number] Isabela Ferguson /nt
== END ==
LOC: PAIN 06:54
PROVIDERS: ATTEND Clinical Nurse Specialist Adult Health
DX: M79.671 Pain in right foot (principal); M79.672 Pain in left foot; I10 Essential (primary) hypertension; G90.09 Other idiopathic peripheral autonomic neuropathy; F11.20 Opioid dependence, uncomplicated; Z86.31 Personal history of diabetic foot ulcer; Z87.19 Personal history of other diseases of the digestive system; Z94.0 Kidney transplant status; Z79.899 Other long term (current) drug therapy

== ENCOUNTER → 2020-01-01 | Outpatient (CLI) | payer BC ==
[~2020-01-01] VITALS: Ht 175.3 cm; Wt 87.1 kg
[~2020-01-01] MED LIST changes: +NEURONTIN 300M300 M2 PO
[2020-01-01 08:07] VITALS: BP 155/97
--- NOTE | 2020-01-01 08:09 | NUR ---
Pain Clinic Assessment: 1. History of Osteoarthritis: B/L FEET History of Rheumatoid Arthritis: Not Applicable 2. Height: 5 ft. 9 in. 175.3 cm. Weight: 192.0 lb. oz. 87.091 kg. Patient's BMI: 28.3 3. Vital Signs: BP: 155/97 Pulse: 96 Resp: 18 Temp: 02 Sat: 98 ECG Mon: 4. Pain Intensity: 9 5. Fall Risk: Dizziness: N Needs help standing or walking: N Fallen in the last 3 months: N Fall risk comments: 6. Patient on Blood Thinner: None 7. History of Hypertension: Y 8. Opioid Therapy greater than 6 weeks: Y Opiate Contract Signed: 12/04/15 9. Risk Assessment Tool Provided: LOW RISK 0 10. Functional Assessment Tool: 11. Recreational Drug Use: Never Drug Type: Tobacco Use: Never Smoker Tobacco Type: Amount or Packs/day: How Many Years: Alcohol Use: No Frequency: Quant:
--- NOTE | 2020-01-01 15:47 | HPC ---
[facility] [place] [address] PAIN MANAGEMENT CONSULTATION Name: FRANCISCO JENNINGS Room #: REG GRETCHENGarry Butler.#: [id number] Admission: 01/01/20 Attend Phys: Isabela Ferguson Discharge: Date of : 65 Report #: [id number] THIS REPORT FOR: cc: Ekaterina Gomez DPM, Ali R. DPM Hocker, Amanda CNS ~ CC: Donald Prado MD DATE OF SERVICE: 01/01/2020 CHIEF COMPLAINT: Bilateral foot pain. HISTORY OF PRESENT ILLNESS: This is a very pleasant 54-year-old gentleman who is well known to the pain clinic and he returns today for medication refill for his ongoing bilateral foot pain that he suffers with due to Charcot foot. He states that it is an electrical constant feeling. Today, he is stating at 10 due to the fact that he bumped his foot at work prior to coming to his appointment. Walking and standing prolonged periods of time exacerbate his pain. 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 He feels that the medications are beneficial though in decreasing his pain. He denies problems with constipation as long as he takes medicine on a regular basis. Today, he is requesting refills. ALLERGIES: No known drug allergies. CURRENT LIST OF MEDICATIONS: Oxycodone 10/325 q.i.d. p.r.n., gabapentin 300 mg q.i.d., oxcarbazepine 300 mg b.i.d., Pepcid, Ativan, Zestril, multivitamin, aspirin, Ambien, prednisone, Myfortic and Prograf. PQRS: 1. He has arthritic changes in his feet. Denies any rheumatoid arthritis. 2. Height is 5 feet 9 inches, weight is 192, BMI is 28. Vital signs 155/97, pulse is 96, respirations 18, oxygen sat is 98, pain score is 9/10. 3. Fall risk. Denies dizziness, does not need help walking or standing, has not fallen in the last 3 months. The patient is not on any blood thinners, but does take medicine for hypertension. His opioid therapy is greater than 6 weeks; therefore, an opioid signed contract is on the chart. Risk assessment is low. Functional assessment is . 4. Recreational drug use, he denies. He is not a smoker and does not drink alcohol. According to the prescription monitoring system, he is filling appropriately for his medications, due to fill later this week. His morphine mEq is 60 MME; therefore, he is seen every 2 months in our clinic. There is a drug screen that was appropriate for his medications that was collected at his last visit. [address] [address] PAIN MANAGEMENT CONSULTATION Name: FRANCISCO JENNINGS Room #: REG CL Marianna#: [id number] Admission: 01/01/20 Attend Phys: Isabela Ferguson Discharge: Date of : 65 Report #: [id number] PHYSICAL EXAMINATION: GENERAL: This is alert and orientated, well-developed, well-nourished 54-year-old gentleman who appears his stated age, placing his current pain score at 9/10 today. HEENT: Normocephalic, atraumatic. Extraocular eye muscles are intact. He is wearing a mask and glasses. NECK: Without adenopathy or JVD. MUSCULOSKELETAL: He has electrical shocking sensation in his bilateral feet, greater on the right than the left. His upper and lower extremity strength judged to be 5/5. He does have a slightly antalgic gait. His pain and discomfort is neuropathic in nature. IMPRESSION: 1. History of diabetic neuropathy, which Charcot foot involving the right side. 2. History of pancreatitis, status post transplantation. 3. Renal transplantation. 4. Hypertension. 5. Neuropathy. 6. Complex medical management, utilizing opioid medications. We reviewed the fact that opiate medications are being used to provide analgesia adequate to support activities of daily living, not attempting to achieve a specific pain score on the 0-10 Visual Analog Scale. The current opiate medications are providing sufficient analgesia to allow the patient to participate in activities of daily living. The patient is not exhibiting any aberrant behavior suggestive of drug diversion. The patient is not having any adverse reactions to medications. The patient is not suffering from daytime somnolence or mental acuity changes. The patient is managing opiate-induced constipation with appropriate llqv-pxq-ivrfteu agents and dietary considerations. The patient was counseled on concern for caution with operating a motor vehicle while using opiate medications. A physical exam was performed and the patient's functional status was evaluated. All patients with back pain were advised against the bed rest greater than 4 days and were advised to return to normal activities. Pain score assessment was noted and the treatment plan was reviewed with the patient. All current medications, both prescribed and OTC were reviewed and reconciled on the electronic medical record. Tobacco screening was accomplished and smoking cessation was advised when indicated. BMI was noted and diet/exercise modification was recommended for all patients following outside normal parameters. I reviewed with the patient today their responsibilities to safeguard prescription medications, reviewed their responsibility to utilize medications only as prescribed by the physician. They are to seek and receive pain medications only from 1 physician group ([facility]). They are to use [address] [address] PAIN MANAGEMENT CONSULTATION Name: FRANCISCO JENNINGS Room #: REG [facility].#: [id number] Admission: 01/01/20 Attend Phys: Isabela Ferguson Discharge: Date of : 65 Report #: [id number] pharmacy and keep the clinic informed if they change pharmacies. Their responsibilities include making followup visits in a timely fashion and to avoid abrupt discontinuation of medication usage. Their responsibilities further include bringing their medications (bottles from the pharmacy with residual pills) to the visit for possible confirmation of pill counts and the patient understands it is their responsibility to submit to random drug screens to ensure both that the medications prescribed are present, and that no other controlled substances are present. All prescriptions provided today were generated electronically. PLAN: 1. We discussed treatment options with the patient today. The patient finds his medications very beneficial. His pain is elevated today due to hitting his foot at work. He reports it will quiet down later in the day as he takes his medications. He feels that they are beneficial with very minimal side effects. We will have Dr. Daniel Prado send his oxycodone 10/325, #120 for today and 4 weeks supply to his pharmacy. 2. I will send his gabapentin 300 mg, the patient takes 2 in the morning, 1 midday, 1 at night, quantity 120 with 5 refills as well as his Trileptal 300 mg b.i.d., #60 with 5 additional refills. 3. The patient will return in 2 months. The patient is seen today in collaboration with Dr. Prado. <ELECTRONICALLY SIGNED> By: Isabela Ferguson 01/01/20 1547 [id number] Isabela Ferguson /nt
== END ==
LOC: PAIN 06:43
PROVIDERS: ATTEND Clinical Nurse Specialist Adult Health
DX: M79.672 Pain in left foot (principal); M79.671 Pain in right foot; I10 Essential (primary) hypertension; G62.9 Polyneuropathy, unspecified; F11.20 Opioid dependence, uncomplicated; Z86.39 Personal history of other endocrine, nutritional and metabolic disease; Z94.0 Kidney transplant status

== ENCOUNTER → 2020-02-19 | Outpatient (CLI) | payer BC ==
[~2020-02-19] VITALS: Ht 175.3 cm; Wt 86.5 kg
[2020-02-19 08:33] VITALS: BP 146/91
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
== END ==
LOC: PAIN 06:47
PROVIDERS: ATTEND Clinical Nurse Specialist Adult Health
DX: M79.671 Pain in right foot (principal); M79.672 Pain in left foot; I10 Essential (primary) hypertension; G62.9 Polyneuropathy, unspecified; F11.20 Opioid dependence, uncomplicated; Z86.39 Personal history of other endocrine, nutritional and metabolic disease; Z79.899 Other long term (current) drug therapy

== ENCOUNTER → 2020-04-22 | Outpatient (CLI) | payer BC ==
[~2020-04-22] VITALS: Ht 175.3 cm; Wt 86.6 kg
[2020-04-22 08:10] VITALS: BP 148/87
--- NOTE | 2020-04-22 08:12 | NUR ---
Pain Clinic Assessment: 1. History of Osteoarthritis: B/L FEET History of Rheumatoid Arthritis: Not Applicable 2. Height: 5 ft. 9 in. 175.3 cm. Weight: 191.0 lb. oz. 86.637 kg. Patient's BMI: 28.2 3. Vital Signs: BP: 148/87 Pulse: 107 Resp: 18 Temp: 02 Sat: 100 ECG Mon: 4. Pain Intensity: 4 5. Fall Risk: Dizziness: N Needs help standing or walking: N Fallen in the last 3 months: N Fall risk comments: 6. Patient on Blood Thinner: None 7. History of Hypertension: Y 8. Opioid Therapy greater than 6 weeks: Y Opiate Contract Signed: 12/04/15 9. Risk Assessment Tool Provided: LOW RISK 0 10. Functional Assessment Tool: 11. Recreational Drug Use: Never Drug Type: Tobacco Use: Never Smoker Tobacco Type: Amount or Packs/day: How Many Years: Alcohol Use: No Frequency: Quant:
== END ==
LOC: PAIN 06:37
PROVIDERS: ATTEND Anesthesiology Pain Medicine
DX: M79.671 Pain in right foot (principal); M79.672 Pain in left foot; I10 Essential (primary) hypertension; G62.9 Polyneuropathy, unspecified; F11.20 Opioid dependence, uncomplicated; Z88.8 Allergy status to other drugs, medicaments and biological substances; Z79.899 Other long term (current) drug therapy

== ENCOUNTER → 2020-09-30 | Outpatient (CLI) | payer BC ==
[~2020-09-30] VITALS: Ht 152.4 cm; Wt 86.2 kg
[~2020-09-30] MED LIST changes: +PERCOCET 10-321 EAC1 PO
[2020-09-30 10:28] VITALS: BP 139/91
--- NOTE | 2020-09-30 10:46 | NUR ---
Pain Clinic Assessment: 1. History of Osteoarthritis: B/L FEET History of Rheumatoid Arthritis: Not Applicable 2. Height: 5 ft. 9 in. 152.4 cm. Weight: 190.0 lb. oz. 86.184 kg. Patient's BMI: 37.1 3. Vital Signs: BP: 139/91 Pulse: 97 Resp: 16 Temp: 02 Sat: 100 ECG Mon: 4. Pain Intensity: 5 5. Fall Risk: Dizziness: N Needs help standing or walking: N Fallen in the last 3 months: N Fall risk comments: 6. Patient on Blood Thinner: None 7. History of Hypertension: Y 8. Opioid Therapy greater than 6 weeks: Y Opiate Contract Signed: 12/04/15 9. Risk Assessment Tool Provided: LOW RISK 0 10. Functional Assessment Tool: 11. Recreational Drug Use: Never Drug Type: Tobacco Use: Never Smoker Tobacco Type: Amount or Packs/day: How Many Years: Alcohol Use: No Frequency: Quant:
--- NOTE | 2020-10-01 07:58 | HPC ---
[facility] [place] [address] PAIN MANAGEMENT CONSULTATION Name: FRANCISCO JENNINGS Room #: REG [place] Carrie.#: [id number] Admission: 09/30/20 Attend Phys: Isabela Ferguson Discharge: Date of : 65 Report #: [id number] THIS REPORT FOR: cc: Ekaterina Gomez DPM, Ali R. DPM Hocker, Amanda CNS ~ DOC #: [id number] cc: Ekaterina Gomez DPM, N Wayne Brown, MD Amanda Hocker, ENGINEER TECHNICAL STAFF DATE OF SERVICE: 09/30/2020 CHIEF COMPLAINT: Bilateral foot pain. HISTORY OF PRESENT ILLNESS: This is a very pleasant 55-year-old gentleman who returns today for renewal of his medications. Unfortunately, the patient reports that he is out of Ambien and has not been able to sleep the last few nights due to not having this medication. He has been taking this medication for quite some time and does have significant insomnia when he does not take this medication. The patient also needs a refill of his oxycodone today, rating his pain score 5/10. Pain is mostly located in his feet bilaterally with electrical sensation due to his neuropathy. It is worse with any standing and walking, but he believes his gabapentin, oxcarbazepine and his Percocet are very beneficial in helping reduce some of that pain. He denies any daytime somnolence or constipation as a result of his medication regimen. ALLERGIES: No known drug allergies. CURRENT LIST OF MEDICATIONS: Ambien 10 mg, oxycodone 10/325 p.r.n., oxcarbazepine 300 mg b.i.d., gabapentin varying dose, Pepcid, Ativan, Zestril, multivitamin, aspirin, prednisone, Myfortic and Prograf. PQRS: 1. He has osteoarthritic changes in his feet. Denies any rheumatoid arthritis. Height is 5 feet 9 inches, weight is 190, BMI is 37. 2. VITAL signs 139/91, pulse is 97, respirations 16, oxygen sat is 100%. 3. Pain score is 5/10. 4. Denies dizziness, does not need help walking or standing, has not fallen in the last 3 months. 5. The patient is not on any blood thinners, but does take medicine for hypertension. 6. Opioid therapy is greater than six weeks; therefore, an opioid signed contract is on the chart. 7. Risk assessment: Low. 8. Functional assessment: . 9. Recreational drug use, he denies. He is not a smoker and does not drink alcohol. [address] [address] PAIN MANAGEMENT CONSULTATION Name: FRANCISCO JENNINGS [id number] Admission: 09/30/20 Attend Phys: Isabela Ferguson Discharge: Date of : 65 Report #: [id number] According to the prescription monitoring system, the patient is filling appropriately in a timely fashion. He is due to fill his opioids next week. His morphine milliequivalent according to the CDC guidelines is 60 MME. There is a recent drug screen on the chart and we will repeat that later in the year, that was appropriate for his medications. PHYSICAL EXAMINATION: GENERAL: This is alert and orientated well-developed, well-nourished, slightly nervous 55-year-old gentleman who appears his stated age, rating his pain score today at 5/10. HEENT: Normocephalic, atraumatic. Extraocular muscles are intact. He is wearing a mask. He does have swelling on his right face due to recent dental issues. MUSCULOSKELETAL: He is without significant scoliosis, kyphosis, or lordosis. Tenderness in his bilateral feet, greater when standing. IMPRESSION: 1. Neuropathic pain. 2. History of diabetes with diabetic neuropathy. 3. History of pancreatic transplant and renal transplant. 4. Hypertension. 5. Complex medical management, utilizing scheduled opioid medications. 6. Insomnia. We reviewed the fact that opiate medications are being used to provide analgesia adequate to support activities of daily living, not attempting to achieve a specific pain score on the 0-10 Visual Analog Scale. The current opiate medications are providing sufficient analgesia to allow the patient to participate in activities of daily living. The patient is not exhibiting any aberrant behavior suggestive of drug diversion. The patient is not having any adverse reactions to medications. The patient is not suffering from daytime somnolence or mental acuity changes. The patient is managing opiate-induced constipation with appropriate fsyq-eli-efyjehe agents and dietary considerations. The patient was counseled on concern for caution with operating a motor vehicle while using opiate medications. PLAN: 1. We discussed treatment options with the patient today. Unfortunately, the patient was out of his Ambien for the past three days, he has not been sleeping. He has tried some kslr-lrb-nphlpfk medications that have not been beneficial in allowing him to sleep. Today, we will send his renewal of his Ambien 10 mg tablets #30 with 1 refill. I encouraged the patient once he notices that he is due for a refill of that medication, to try and break the medicine, so he does not go without it. 2. We will continue him on his oxycodone 10. Scripts will be sent [address] [address] PAIN MANAGEMENT CONSULTATION Name: FRANCISCO JENNINGS [facility] [id number] Admission: 09/30/20 Attend Phys: Isabela Ferguson Discharge: Date of : 65 Report #: [id number] electronically for today of four-week supply of #120 pills. The patient does find these beneficial with very minimal side effects. 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 3. We will renew his gabapentin 300 mg, he takes varying doses throughout the day, #120, as well as his oxcarbazepine, #60 with 5 additional refills of both of these medications. Both these adjunct medicines worked very well in controlling his neuropathy. 4. We will follow up with the patient in 2 months. Time spent in consultation with the patient, reviewing recent studies and clinical notes and physician reports, physical examination and correlation of findings and medical documentation to determine possible treatment options, 13 minutes. Time spent preparing for appointment, reviewing prescription monitoring system, reviewing records and proposed treatment options and reviewing current medications 5 minutes. Time spent preparing and sending electronic prescriptions with collaborating physician, Dr. Daniel Prado, and documentation of visit and plan of treatment, 5-minute. Total time spent 23 minutes. KINSEY Arcos/MARISA <ELECTRONICALLY SIGNED> By: Isabela Ferguson 10/01/20 0758 [id number] Isabela Ferguson /martin
== END ==
LOC: PAIN 07:04
PROVIDERS: ATTEND Clinical Nurse Specialist Adult Health
DX: G62.9 Polyneuropathy, unspecified (principal); E11.40 Type 2 diabetes mellitus with diabetic neuropathy, unspecified; I10 Essential (primary) hypertension; G47.00 Insomnia, unspecified; Z94.83 Pancreas transplant status; Z94.0 Kidney transplant status; Z79.891 Long term (current) use of opiate analgesic; Z79.899 Other long term (current) drug therapy

== ENCOUNTER → 2020-12-30 | Outpatient (CLI) | payer BC ==
[~2020-12-30] VITALS: Ht 175.3 cm; Wt 82.4 kg
[2020-12-30 08:11] VITALS: BP 145/86
--- NOTE | 2020-12-30 08:17 | NUR ---
Pain Clinic Assessment: 1. History of Osteoarthritis: B/L FEET History of Rheumatoid Arthritis: Not Applicable 2. Height: 5 ft. 9 in. 175.3 cm. Weight: 181.6 lb. oz. 82.373 kg. Patient's BMI: 26.8 3. Vital Signs: BP: 145/86 Pulse: 102 Resp: 18 Temp: 02 Sat: 100 ECG Mon: 4. Pain Intensity: 5 WITH MEDS 8 WITHOUT 5. Fall Risk: Dizziness: Needs help standing or walking: Fallen in the last 3 months: Fall risk comments: 6. Patient on Blood Thinner: None 7. History of Hypertension: Y 8. Opioid Therapy greater than 6 weeks: Y Opiate Contract Signed: 12/04/15 9. Risk Assessment Tool Provided: LOW RISK 0 10. Functional Assessment Tool: 11. Recreational Drug Use: Never Drug Type: Tobacco Use: Never Smoker Tobacco Type: Amount or Packs/day: How Many Years: Alcohol Use: No Frequency: Quant:
--- NOTE | 2020-12-31 08:09 | HPC ---
[facility] [place] [address] [place] [address] PAIN MANAGEMENT CONSULTATION Name: FRANCISCO JENNINGS Room #: REG [place] Marianna#: [id number] Admission: 12/30/20 Attend Phys: Isabela Ferguson Discharge: Date of : 65 Report #: [id number] THIS REPORT FOR: cc: Ekaterina Gomez DPM, Ali R. DPM Hocker, Amanda CNS ~ cc: Ekaterina Gomez DPM, N Wayne Brown, MD DATE OF SERVICE: 12/30/2020 CHIEF COMPLAINT: Bilateral foot pain. HISTORY OF PRESENT ILLNESS: This is a very pleasant 55-year-old gentleman who returns to the pain clinic for renewal of his medication. The patient continues to have severe neuropathy in his feet related to his diabetes. He is also a kidney transplant recipient due to his diabetes. Today, the patient is reporting his pain score of 5 with his medication and 8 without. His pain is worse with standing and walking, which he does require to do a lot at his job. Overall, he believes that the medication are very beneficial in controlling his pain. He describes his pain as electric constant sensation. The patient has recently recovered from COVID. We did not see him at his last visit due to him being sick. He has had the vaccine, but he has since a transplant recipient, evidently, he did not have good immune response from his vaccine. He has now had a third vaccine as well at the time of him becoming sick with COVID. He did have monoclonal antibodies and he believes that was beneficial in helping him recover. The patient reports at least a 25-pound weight loss as a result of his COVID. At times, he had a fever of close to 105. fortunately, he was not hospitalized and his takes very good care of him at home, per his report. ALLERGIES: No known drug allergies. CURRENT LIST OF MEDICATIONS: Ambien, oxycodone 10/325, oxcarbazepine, gabapentin, Pepcid, Ativan p.r.n., lisinopril, multivitamin, aspirin, prednisone, Myfortic and Prograf. PQRS: 1. He has osteoarthritic changes in his feet. Denies any rheumatoid arthritis. Height is 5 feet 9 inches, weight is 181, BMI is 26. 2. Vital signs: Blood pressure 145/86, pulse 102, respirations 18, oxygen sat is 100. 3. Pain score is 5/10 with medications and 8/10 without. 4. Fall risk: Denies difficulty walking and does not have any dizziness or falls. 5. He is not on any blood thinners, but does take medicine for hypertension. 6. Opioid therapy is greater than 6 weeks; therefore, an opioid signed contract [address] [address] PAIN MANAGEMENT CONSULTATION Name: FRANCISCO JENNINGS [facility] [id number] Admission: 12/30/20 Attend Phys: Isabela Ferguson Discharge: Date of : 65 Report #: [id number] is on the chart. 7. Risk assessment is low. Functional assessment is . 8. Recreational drug use, he denies. He is not a smoker and does not drink alcohol. According to the prescription monitoring system, the patient is filling appropriately. He did fill his medications early December. His morphine mEq is 50 MME according to CDC guidelines. There is a drug screen on the chart that is appropriate for his medications. We will recheck that at his next visit. PHYSICAL EXAMINATION: GENERAL: This is alert and orientated well-developed, well-nourished, slightly anxious 55-year-old gentleman who appears his stated age, rating his pain score from 5-8. HEENT: Normocephalic, atraumatic. Extraocular eye muscles are intact. Mucous membranes are moist. He is wearing a mask for COVID precautions. MUSCULOSKELETAL: He is without significant scoliosis, kyphosis, or lordosis. He has burning sensation in his feet bilaterally, worse on the right than the left. He has normal gait with tandem with peripheral neuropathy pain from his knees down to his feet bilaterally. We reviewed the fact that opiate medications are being used to provide analgesia adequate to support activities of daily living, not attempting to achieve a specific pain score on the 0-10 Visual Analog Scale. The current opiate medications are providing sufficient analgesia to allow the patient to participate in activities of daily living. The patient is not exhibiting any aberrant behavior suggestive of drug diversion. The patient is not having any adverse reactions to medications. The patient is not suffering from daytime somnolence or mental acuity changes. The patient is managing opiate-induced constipation with appropriate attg-lkj-fmnilwf agents and dietary considerations. The patient was counseled on concern for caution with operating a motor vehicle while using opiate medications. PLAN: 1. We discussed treatment options with the patient today. We are thankful that he recovered from his COVID outbreak. He has gained 10 pounds back of the weight that he has lost. 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 2. We will continue him on his oxycodone 10/325, #120 will be sent electronically for today and 4-week release. We will also send his Ambien medication that he takes nightly. 3. The patient is not needing his gabapentin or oxcarbazepine, but he finds those medications very beneficial with his neuropathy. 4. We will collect a random drug screen at his next appointment in 2 months. Time spent in consultation with patient, reviewing recent studies and clinical notes and physician reports, physical examination and correlation of findings [facility] [address] [place] [address] PAIN MANAGEMENT CONSULTATION Name: FRANCISCO JENNINGS Room #: REG [place] Butler.#: [id number] Admission: 12/30/20 Attend Phys: Isabela Ferguson Discharge: Date of : 65 Report #: [id number] and medical documentation to determine possible treatment options 12 minutes. Time spent preparing for appointment reviewing prescription monitoring system, reviewing previous records and proposed treatment options and reviewing current medications, 5 minutes. Time spent preparing and sending electronic prescriptions with collaborating physician, Dr. Daniel Prado, and documentation of visit and plan of treatment 5 minutes. Total time spent 22 minutes. <ELECTRONICALLY SIGNED> By: Isabela Ferguson 12/31/20 0809 0813 1030 Isabela Ferguson /nt
== END ==
LOC: PAIN 11-27 07:03
PROVIDERS: ATTEND Clinical Nurse Specialist Adult Health
DX: M79.672 Pain in left foot (principal); M79.671 Pain in right foot; E11.9 Type 2 diabetes mellitus without complications; Z94.0 Kidney transplant status; Z79.82 Long term (current) use of aspirin

== ENCOUNTER → 2021-02-17 | Outpatient (CLI) | payer BC ==
[~2021-02-17] VITALS: Ht 175.3 cm; Wt 83.1 kg
[2021-02-17 09:21] VITALS: BP 149/99
--- NOTE | 2021-02-18 07:29 | HPC ---
[facility] [address] [place] [address] PAIN MANAGEMENT CONSULTATION Name: FRANCISCO JENNINGS Room #: REG [place] Marianna#: [id number] Admission: 02/17/21 Attend Phys: Isabela Ferguson Discharge: Date of : 65 Report #: [id number] THIS REPORT FOR: cc: Ekaterina Gomez DPM, Ali R. DPM Hocker, Amanda CNS ~ cc: Ekaterina Gomez DPM, N Wayne Brown, MD DATE OF SERVICE: 02/17/2021 CHIEF COMPLAINT: Bilateral foot pain. HISTORY OF PRESENT ILLNESS: This is a very pleasant 55-year-old gentleman who returns to the Pain Clinic today for renewal of medications. He is stating that his pain has increased significantly in the past few months. He is busier at work, which may be part of the issue he reports. He has an appointment with Dr. Gomez soon to discuss any options that may be beneficial for Charcot of his right foot. He also suffers from diabetic neuropathy, which does cause significant burning and electrical sensations in his right foot. He reports that walking and standing is more painful for him at night, at home. He occasionally wears a boot on his foot that is beneficial as long as he does not have significant swelling in his foot as well as taking his opioid medications and neuropathic meds. He denies any daytime somnolence or constipation with his medication regimen. ALLERGIES: No known drug allergies. CURRENT LIST OF MEDICATIONS: Oxycodone 10/325 p.r.n., Ambien 10 mg at bedtime, oxcarbazepine 300 mg b.i.d., gabapentin, Pepcid, alprazolam, lisinopril, multivitamin, aspirin, prednisone, Myfortic, and Prograf. PQRS: 1. He has a history of osteoarthritis in his feet bilaterally. Denies any rheumatoid arthritis. Height is 5 feet 9 inches, weight is 183. BMI is 27. 2. Vital signs 149/99, pulse is 92, respirations 14, oxygen sat is 100. 3. Pain score 7/10. 4. Denies dizziness, does not need help with ambulation and has not fallen in the last 3 months. 5. The patient is not on any blood thinners, but continues hypertensive medications. 6. Opioid therapy is greater than 6 weeks; therefore, an opioid signed contract is on the chart. 7. Risk assessment is low. Functional assessment is . 8. Recreational drug use, he denies. He is not a smoker and does not drink alcohol. According to the prescription monitoring system, he is filling appropriately in [address] [address] PAIN MANAGEMENT CONSULTATION Name: FRANCISCO JENNINGS Room #: REG [facility] M.Pavithra.#: [id number] Admission: 02/17/21 Attend Phys: Isabela Ferguson Discharge: Date of : 65 Report #: [id number] a timely fashion. He is due to fill his medications on the . Morphine mEq is 60 MME is according to the CDC guidelines. We will collect a random drug screen on this patient today. PHYSICAL EXAMINATION: GENERAL: This is an alert and orientated, anxious, well-developed, well-nourished 55-year-old gentleman who appears his stated age, rating his pain score today at 7/10. HEENT: Normocephalic, atraumatic. Extraocular eye muscles are intact. He is wearing a mask for COVID precautions. MUSCULOSKELETAL: He is without significant scoliosis, kyphosis, or lordosis. Significant burning sensation in his feet bilaterally, greater on the right due to his Charcot right foot with occasional swelling, no edema noted presently. The patient has a tandem gait. We reviewed the fact that opiate medications are being used to provide analgesia adequate to support activities of daily living, not attempting to achieve a specific pain score on the 0-10 Visual Analog Scale. The current opiate medications are providing sufficient analgesia to allow the patient to participate in activities of daily living. The patient is not exhibiting any aberrant behavior suggestive of drug diversion. The patient is not having any adverse reactions to medications. The patient is not suffering from daytime somnolence or mental acuity changes. The patient is managing opiate-induced constipation with appropriate frqm-gxc-hhqtljp agents and dietary considerations. The patient was counseled on concern for caution with operating a motor vehicle while using opiate medications. IMPRESSION: 1. Neuropathic pain. 2. History of diabetes with diabetic neuropathy. 3. History of pancreatic transplant with renal transplantation on autoimmune medications. 4. Hypertension. 5. Charcot right foot with ongoing pain. 6. Complex medical management utilizing opioid medications. 6. Insomnia. PLAN: 1. We discussed treatment options with the patient today. The patient states that he is having increasing pain, especially in his right foot. He is scheduled to see Dr. Ekaterina Gomez for other options to help control some of his pain. We did discuss a possible spinal cord stimulator implant, which is approved now for diabetic neuropathy. Unfortunately, since the patient has had transplant in the past, those physicians have warned about any implanted devices. Therefore, then we did discuss TENS unit to see if this is beneficial in helping decrease some of his pain. The patient will look on [employer] or we [employer]ell [facility] [address] [place] [address] PAIN MANAGEMENT CONSULTATION Name: FRANCISCO JENNINGS Room #: REG [facility]#: [id number] Admission: 02/17/21 Attend Phys: Isabela Ferguson Discharge: Date of : 65 Report #: [id number] write a prescription if he would like to get this through his insurance. The patient reports he will research it and call if needed a script. 2. We will continue the patient on his oxycodone 10/325 #120 releasing on 02/26 and again in 5 weeks. 3. The patient continues on his Ambien 10 mg tablets, #30 with one additional refill, gabapentin 300 mg tablets 4 times a day, #120 with 5 additional refills and oxcarbazepine 300 mg tablets #60 with 5 additional refills. 4. Random urine screen will be collected on this patient today. He reports taking his medication this morning. Time spent in consultation with patient, reviewing recent studies, clinical notes, physician reports, physical examination, and correlation of findings and medical documentation to determine possible treatment options, 16 minutes. Time spent preparing for appointment, reviewing prescription monitoring system, reviewing previous records and proposed treatment options, and reviewing current medications, 5 minutes. Time spent preparing and sending electronic prescriptions with collaborating physician, Dr. Daniel Prado, documentation of visit and plan of treatment, 5 minutes. Total time spent 27 minutes. <ELECTRONICALLY SIGNED> By: Isabela Ferguson 02/18/21 0729 0912 Nicky Ferguson /martin
== END ==
LOC: PAIN 09:03
PROVIDERS: ATTEND Clinical Nurse Specialist Adult Health
DX: M79.671 Pain in right foot (principal); M79.672 Pain in left foot; E11.40 Type 2 diabetes mellitus with diabetic neuropathy, unspecified; I10 Essential (primary) hypertension; Z94.0 Kidney transplant status; Z79.82 Long term (current) use of aspirin; Z79.899 Other long term (current) drug therapy

== ENCOUNTER → 2021-04-23 | Outpatient (CLI) | payer BC ==
[~2021-04-23] VITALS: Ht 175.3 cm; Wt 82.4 kg
[2021-04-23 08:03] VITALS: BP 157/89
--- NOTE | 2021-04-23 08:07 | NUR ---
Pain Clinic Assessment: 1. History of Osteoarthritis: B/L FEET History of Rheumatoid Arthritis: Not Applicable 2. Height: 5 ft. 9 in. 175.3 cm. Weight: 181.6 lb. oz. 82.373 kg. Patient's BMI: 26.8 3. Vital Signs: BP: 157/89 Pulse: 97 Resp: 20 Temp: 02 Sat: 100 ECG Mon: 4. Pain Intensity: 7 5. Fall Risk: Dizziness: N Needs help standing or walking: N Fallen in the last 3 months: N Fall risk comments: 6. Patient on Blood Thinner: None 7. History of Hypertension: Y 8. Opioid Therapy greater than 6 weeks: Y Opiate Contract Signed: 12/04/15 9. Risk Assessment Tool Provided: LOW RISK 0 10. Functional Assessment Tool: 11. Recreational Drug Use: Never Drug Type: Tobacco Use: Never Smoker Tobacco Type: Amount or Packs/day: How Many Years: Alcohol Use: No Frequency: Quant:
== END ==
LOC: PAIN 07:37
PROVIDERS: ATTEND Clinical Nurse Specialist Adult Health
DX: M79.671 Pain in right foot (principal); M79.672 Pain in left foot; E11.40 Type 2 diabetes mellitus with diabetic neuropathy, unspecified; G47.00 Insomnia, unspecified; Z79.899 Other long term (current) drug therapy